=== PATIENT | female | born 1970 | race Caucasian/White ===

== ENCOUNTER 2016-10-13 09:23 | Emergency (ER) | payer OTHER ==
--- NOTE | 2016-10-13 10:07 | EDDOCDS ---
Physician Documentation [facility] Name: Anastasia Arriaga Age: 46 yrs Sex: Female : 1970 Arrival Date: 10/13/2016 Time: 09:23 Bed TR7 Private MD: Disposition: 10/13/16 09:58 Discharged to Home/Self Care. Impression: Acute nasopharyngitis [common cold]. - Condition is Stable. - Discharge Instructions: Upper Respiratory Infection, Adult, Viral Infections, Cool Mist Vaporizers. - Medication Reconciliation, Local Pharmacy Hours form. - Follow up: Private Physician; When: 2 - 3 days; Reason: Further diagnostic work-up, Recheck today's complaints, Continuance of care. - Problem is new. - Symptoms are unchanged. Historical: - Allergies: Motrin (Hives); Percocet (Hives, Rash); - Home Meds: 1. none - PMHx: Asthma; - PSHx: Hysterectomy (2012); - Social history: Smoking status: Patient uses tobacco products, light tobacco smoker. No barriers to communication noted, The patient speaks fluent Greek. - Family history: Not pertinent. - : The pt / caregiver states he / she is not on anticoagulants. Home medication list is obtained from the patient. - Exposure Risk Screening:: None identified. 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 8 in. (172.72 cm); Pain 8/10; 09:31 Body Mass Index 29.35 (87.54 kg, 172.72 cm) jc4 MDM: 09:46 [facility] Payment Agreement was scanned into [employer] and attached to record. dm19 10:03 Financial registration complete. dm19 Signatures: Paula Moreland, RN Chapincito Hendricks PA PA btw Castle, Jennifer, RN RN jc4 Katarzyna Garzon dm19 The chart was reviewed and I authenticate all verbal orders and agree with the evaluation and treatment provided.Attachments: 09:46 [facility] Payment Agreement dm19 MTDD
--- NOTE | 2016-10-13 10:07 | EDDOCDS ---
Nurse's Notes [facility] Name: Anastasia Arriaga Age: 46 yrs Sex: Female : 1970 Arrival Date: 10/13/2016 Time: 09:23 Bed TR7 Private MD: Diagnosis: Acute nasopharyngitis [common cold] Presentation: 10/13 09:27 Presenting complaint: Patient states: "I woke up yesterday morning and my whole body jc4 aches. I woke up a few minutes ago and my whole body aches, my head hurts and I 've been coughing". States productive cough with green sputum production. States cold chills and feels hot at times. Suicide/Homicide risk assessment- the patient denies having any suicidal and/or homicidal ideations and does not present with any other emotional, behavioral or mental health complaints. 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 Transition of care: patient was not received from another setting of care. 09:27 Acuity: ARLETTE Level 4 jc4 09:27 Method Of Arrival: Walkin/Carried/Asstd jc4 09:34 Adult Sepsis Screening: The patient does not have new or worsening altered mentation. jc4 Patient's respiratory rate is less than 22. Systolic blood pressure is greater than 100. Patient has a qSOFA score of 0- Negative Sepsis Screen. Triage Assessment: 09:29 General: Appears in no apparent distress. Pain: Pain currently is 8 out of 10 on a pain jc4 scale. Pt Declines HIV testing. 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 none - PMHx: Asthma; - PSHx: Hysterectomy (2012); - Social history: Smoking status: Patient uses tobacco products, light tobacco smoker. No barriers to communication noted, The patient speaks fluent Djiboutian. - Family history: Not pertinent. - : The pt / caregiver states he / she is not on anticoagulants. Home medication list is obtained from the patient. - Exposure Risk Screening:: None identified. Screenin:04 Screening information is obtained from the patient. Primary language is Djiboutian. Fall dls risk: No risks identified. Assistance ADL's: requires no assistance with activities of daily living. Abuse/DV Screen: The patient / caregiver reports he/she is: not in a situation that causes fear, pain or injury. Nutritional screening: No deficits noted. Advance Directives: Currently, there is no health care proxy. There is no active DNR order. There is no living will. There is no Power of [place]. Advance directive information has not previously been placed in an [facility] medical record. home support is adequate. Assessment: 10:04 General: Appears uncomfortable, Behavior is cooperative. Awake, alert, oriented. Skin dls warm and dry. Moves all extremities. Bilateral breath sounds clear. Respirations unlabored. Abdomen soft, non-tender. No apparent distress. The patient / caregiver is instructed regarding the plan of care and ED course. Vital Signs: 09:31 BP 132 / 74; Pulse 82; Resp 20; Temp 96.5(O); Pulse Ox 97% ; Weight 87.54 kg (M); jc4 Height 5 ft. 8 in. (172.72 cm); Pain 8/10; 09:31 Body Mass Index 29.35 (87.54 kg, 172.72 cm) [facility] Vitals: 09:29 Log In Time: October 13, 2016 at 09:22. 4 ED Course: 09:26 Patient visited by Helder Flores Reg. lg 09:26 Patient moved to Waiting lg 09:28 Triage Initiated jc4 09:30 Patient moved to Triage 1 jc4 09:34 Chapincito Cassidy PA is PHCP. btw 09:34 Fatoumata Harvey MD is Attending Physician. btw 09:46 [facility] Payment Agreement was scanned into [employer] and attached to record. dm19 09:48 Patient visited by Chapincito Cassidy PA. btw 10:03 Patient moved to TR7 dls 10:04 Patient has correct armband on for positive identification. Bed in low position. Call dls light in reach. 10:06 No IV's were initiated during this patient's visit. No procedures done that require dls assistance. Order Results: There are currently no results for this order. Outcome: 09:58 Discharge ordered by Provider. btw 10:04 The following High Risk Discharge criteria are identified: None. Discharged to home dls ambulatory. Condition: stable. Discharge instructions given to patient, Instructed on discharge instructions, follow up and referral plans. Demonstrated understanding of instructions, Pt was receptive of discharge instructions/ teaching. No special radiology studies were completed. 10:06 Discharge Assessment: Patient awake, alert and oriented x 3. No cognitive and/or dls functional deficits noted. Patient verbalized understanding of disposition instructions. patient administered narcotics - no. Property sent home with patient. 10:06 Patient left the ED. dls Signatures: Paula Moreland RN RN Helder Carmona, Cash Reg Chapincito Fregoso PA PA btw Castle, Jennifer, RN RN jc4 Katarzyna Garzon dm19 MTDD
--- NOTE | 2016-10-16 10:45 | EDDOCDS ---
Physician Documentation [facility] Name: Anastasia Arriaga Age: 46 yrs Sex: Female : 1970 Arrival Date: 10/13/2016 Time: 09:23 Bed TR7 Private MD: Disposition: 10/13/16 09:58 Discharged to Home/Self Care. Impression: Acute nasopharyngitis [common cold]. - Condition is Stable. - Discharge Instructions: Upper Respiratory Infection, Adult, Viral Infections, Cool Mist Vaporizers. - Medication Reconciliation, Local Pharmacy Hours form. - Follow up: Private Physician; When: 2 - 3 days; Reason: Further diagnostic work-up, Recheck today's complaints, Continuance of care. - Problem is new. - Symptoms are unchanged. Historical: - Allergies: Motrin (Hives); Percocet (Hives, Rash); - Home Meds: 1. none - PMHx: Asthma; - PSHx: Hysterectomy (2012); - Social history: Smoking status: Patient uses tobacco products, light tobacco smoker. No barriers to communication noted, The patient speaks fluent Greek. - Family history: Not pertinent. - : The pt / caregiver states he / she is not on anticoagulants. Home medication list is obtained from the patient. - Exposure Risk Screening:: None identified. 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 8 in. (172.72 cm); Pain 8/10; 09:31 Body Mass Index 29.35 (87.54 kg, 172.72 cm) jc4 MDM: 09:46 [facility] Payment Agreement was scanned into [employer] and attached to record. dm19 10:03 Financial registration complete. dm19 11:57 T-Sheet-- Draft Copy was scanned into [employer] and attached to record. [facility] Signatures: Paula Moreland RN RN dls Wolfenden, Brandon, PA PA btw Castle, Jennifer, RN RN jc4 Uzma Grimes Diane dm19 The chart was reviewed and I authenticate all verbal orders and agree with the evaluation and treatment provided.Attachments: 09:46 [facility] [place] Agreement dm19 11:57 T-Sheet-- Draft Copy [facility] Chart Complete MTDD
--- NOTE | 2016-10-16 10:45 | EDDOCDS ---
Physician Documentation [facility] Name: Anastasia Arriaga Age: 46 yrs Sex: Female : 1970 Arrival Date: 10/13/2016 Time: 09:23 Bed TR7 Private MD: Disposition: 10/13/16 09:58 Discharged to Home/Self Care. Impression: Acute nasopharyngitis [common cold]. - Condition is Stable. - Discharge Instructions: Upper Respiratory Infection, Adult, Viral Infections, Cool Mist Vaporizers. - Medication Reconciliation, Local Pharmacy Hours form. - Follow up: Private Physician; When: 2 - 3 days; Reason: Further diagnostic work-up, Recheck today's complaints, Continuance of care. - Problem is new. - Symptoms are unchanged. Historical: - Allergies: Motrin (Hives); Percocet (Hives, Rash); - Home Meds: 1. none - PMHx: Asthma; - PSHx: Hysterectomy (2012); - Social history: Smoking status: Patient uses tobacco products, light tobacco smoker. No barriers to communication noted, The patient speaks fluent French. - Family history: Not pertinent. - : The pt / caregiver states he / she is not on anticoagulants. Home medication list is obtained from the patient. - Exposure Risk Screening:: None identified. 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 8 in. (172.72 cm); Pain 8/10; 09:31 Body Mass Index 29.35 (87.54 kg, 172.72 cm) jc4 MDM: 09:46 [facility] Payment Agreement was scanned into [email or web address] and attached to record. dm19 10:03 Financial registration complete. dm19 11:57 T-Sheet-- Draft Copy was scanned into [employer] and attached to record. [facility] Signatures: Paula Moreland RN RN dls Wolfenden, Brandon, PA PA btw Castle, Jennifer, RN RN jc4 Uzma Grimes Diane dm19 The chart was reviewed and I authenticate all verbal orders and agree with the evaluation and treatment provided.Attachments: 09:46 [facility] Payment Agreement dm19 11:57 T-Sheet-- Draft Copy [facility] Chart Complete MTDD
--- NOTE | 2016-10-16 10:45 | EDDOCDS ---
Nurse's Notes [facility] Name: Anastasia Arriaga Age: 46 yrs Sex: Female : 1970 Arrival Date: 10/13/2016 Time: 09:23 Bed TR7 Private MD: Diagnosis: Acute nasopharyngitis [common cold] Presentation: 10/13 09:27 Presenting complaint: Patient states: "I woke up yesterday morning and my whole body jc4 aches. I woke up a few minutes ago and my whole body aches, my head hurts and I 've been coughing". States productive cough with green sputum production. States cold chills and feels hot at times. Suicide/Homicide risk assessment- the patient denies having any suicidal and/or homicidal ideations and does not present with any other emotional, behavioral or mental health complaints. Status: Patient is not a vp cardiovascular service line or dependent. Transition of care: patient was not received from another setting of care. 09:27 Acuity: ARLETTE Level 4 jc4 09:27 Method Of Arrival: Walkin/Carried/Asstd jc4 09:34 Adult Sepsis Screening: The patient does not have new or worsening altered mentation. jc4 Patient's respiratory rate is less than 22. Systolic blood pressure is greater than 100. Patient has a qSOFA score of 0- Negative Sepsis Screen. Triage Assessment: 09:29 General: Appears in no apparent distress. Pain: Pain currently is 8 out of 10 on a pain jc4 scale. Pt Declines HIV testing. 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 none - PMHx: Asthma; - PSHx: Hysterectomy (2012); - Social history: Smoking status: Patient uses tobacco products, light tobacco smoker. No barriers to communication noted, The patient speaks fluent [place] Lankan. - Family history: Not pertinent. - : The pt / caregiver states he / she is not on anticoagulants. Home medication list is obtained from the patient. - Exposure Risk Screening:: None identified. Screenin:04 Screening information is obtained from the patient. Primary language is Sri Lankan. Fall dls risk: No risks identified. Assistance ADL's: requires no assistance with activities of daily living. Abuse/DV Screen: The patient / caregiver reports he/she is: not in a situation that causes fear, pain or injury. Nutritional screening: No deficits noted. Advance Directives: Currently, there is no health care proxy. There is no active DNR order. There is no living will. There is no Power of [place]. Advance directive information has not previously been placed in an [facility] medical record. home support is adequate. Assessment: 10:04 General: Appears uncomfortable, Behavior is cooperative. Awake, alert, oriented. Skin dls warm and dry. Moves all extremities. Bilateral breath sounds clear. Respirations unlabored. Abdomen soft, non-tender. No apparent distress. The patient / caregiver is instructed regarding the plan of care and ED course. Vital Signs: 09:31 BP 132 / 74; Pulse 82; Resp 20; Temp 96.5(O); Pulse Ox 97% ; Weight 87.54 kg (M); jc4 Height 5 ft. 8 in. (172.72 cm); Pain 8/10; 09:31 Body Mass Index 29.35 (87.54 kg, 172.72 cm) [facility] Vitals: 09:29 Log In Time: October 13, 2016 at 09:22. [facility] ED Course: 09:26 Patient visited by Helder Flores Reg. lg 09:26 Patient moved to Waiting lg 09:28 Triage Initiated 4 09:30 Patient moved to Triage 1 jc4 09:34 Chapincito Cassidy PA is PHCP. btw 09:34 Fatoumata Harvey MD is Attending Physician. btw 09:46 [facility] Payment Agreement was scanned into [employer] and attached to record. dm19 09:48 Patient visited by Chapincito Cassidy PA. btw 10:03 Patient moved to TR7 dls 10:04 Patient has correct armband on for positive identification. Bed in low position. Call dls light in reach. 10:06 No IV's were initiated during this patient's visit. No procedures done that require dls assistance. 11:57 T-Sheet-- Draft Copy was scanned into [employer] and attached to record. [facility] Order Results: There are currently no results for this order. Outcome: 09:58 Discharge ordered by Provider. btw 10:04 The following High Risk Discharge criteria are identified: None. Discharged to home dls ambulatory. Condition: stable. Discharge instructions given to patient, Instructed on discharge instructions, follow up and referral plans. Demonstrated understanding of instructions, Pt was receptive of discharge instructions/ teaching. No special radiology studies were completed. 10:06 Discharge Assessment: Patient awake, alert and oriented x 3. No cognitive and/or dls functional deficits noted. Patient verbalized understanding of disposition instructions. patient administered narcotics - no. Property sent home with patient. 10:06 Patient left the ED. dls Signatures: Paula Moreland, RN RN Helder Carmona, Reg Reg lg Chapincito Cassidy PA PA btw Castle, Jennifer, RN RN jai Grimes, Katarzyna Ma dm19 Chart Complete [facility]
== END 2016-10-13 10:06 | disposition home or self-care (01) ==
LOC: M ED 09:23
DX: J06.9 Acute upper respiratory infection, unspecified (principal); B34.9 Viral infection, unspecified; J45.909 Unspecified asthma, uncomplicated; Z88.5 Allergy status to narcotic agent; Z88.6 Allergy status to analgesic agent; F17.210 Nicotine dependence, cigarettes, uncomplicated

== ENCOUNTER 2016-10-27 20:09 | Emergency (ER) | payer OTHER | END 2016-10-27 22:08 | disposition left against medical advice (07) | LOC: M ED 20:09 | DX: K02.9 Dental caries, unspecified (principal); Z53.20 Procedure and treatment not carried out because of patient's decision for unspecified reasons ==

== ENCOUNTER 2016-10-27 22:43 | Emergency (ER) | payer OTHER ==
[2016-10-28] MEDS ORDERED: LIDOCAINE VISCOUS 2% SOLN 15ML UDC As Ordered ONE (00:50)
[2016-10-28] MEDS ORDERED: PENICILLIN V POTASSIUM 500 MG TAB PO ONE (01:15)
--- NOTE | 2016-10-28 01:28 | EDDOCDS ---
Nurse's Notes [facility] Name: Anastasia Arriaga Age: 46 yrs Sex: Female : 1970 Arrival Date: 10/27/2016 Time: 22:43 Bed I1 / M1 Private MD: NO PRIMARY PHYSICIAN, . Diagnosis: Dental caries, unspecified-WITH PAIN OVER #15 TOOTH Presentation: 10/27 22:54 Presenting complaint: Patient states: LWBS earlier. Reports having been in the bathroom kmg1 and then out smoking. Still wishes to have her teeth looked at. Adult Sepsis Screening: The patient does not have new or worsening altered mentation. Patient's respiratory rate is less than 22. Systolic blood pressure is greater than 100. Patient has a qSOFA score of 0- Negative Sepsis Screen. Suicide/Homicide risk assessment- the patient denies having any suicidal and/or homicidal ideations and does not present with any other emotional, behavioral or mental health complaints. 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 Transition of care: patient was not received from another setting of care. 22:54 Acuity: ARLETTE Level 5 km 22:54 Method Of Arrival: Walkin/Carried/Asstd km Triage Assessment: 22:55 General: Appears in no apparent distress, comfortable, Behavior is appropriate for age, kmg1 cooperative, pleasant. Pain: Location: mouth Pain currently is 8 out of 10 on a pain scale. HIV screening NA for this visit Offered previously. EENT: Reports pain in mouth. 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 Tylenol 500 mg Oral 2 tabs as needed - PMHx: Asthma; - PSHx: Hysterectomy (2012); - Social history: Smoking status: Patient uses tobacco products, heavy tobacco smoker. No barriers to communication noted, The patient speaks fluent Japanese, Speaks appropriately for age. - Family history: Not pertinent. - : The pt / caregiver states he / she is not on anticoagulants. Home medication list is obtained from the patient. - Exposure Risk Screening:: None identified. Screenin/22 01:00 Screening information is obtained from the patient. Fall risk: No risks identified. ld5 Assistance ADL's: requires no assistance with activities of daily living. Abuse/DV Screen: The patient / caregiver reports he/she is: not in a situation that causes fear, pain or injury. Nutritional screening: No deficits noted. Advance Directives: There is no active DNR order. home support is adequate. Assessment: 01:00 General: Appears in no apparent distress, Behavior is cooperative. Pain: Location: ld5 mouth Pain currently is 9 out of 10 on a pain scale. Neurological: Level of Consciousness is awake, alert. EENT: Reports pain in mouth. Respiratory: Airway is patent Respiratory effort is even, unlabored. 01:25 Reassessment: Patient appears in no apparent distress at this time. first dose rw1 antibiotic given and lidocaine given to apply on affected tooth. Vital Signs: 10/27 22:45 BP 113 / 59; Pulse 80; Resp 18 S; Temp 99.6(O); Pulse Ox 100% on R/A; Weight 81.65 kg gr2 (R); Height 5 ft. 8 in. (172.72 cm) (R); Pain 8/10; 10/28 01:25 BP 130 / 65; Pulse 69; Resp 16; Temp 97.7(TE); Pulse Ox 96% on R/A; Pain 8/10; rw1 10/27 22:45 Body Mass Index 27.37 (81.65 kg, 172.72 cm) gr2 Vitals: 10/27 22:45 Log In Time: October 27, 2016 at 22:45. gr2 ED Course: 22:44 Patient visited by Susan Tan. gr2 22:44 Patient moved to Waiting gr2 22:45 NO PRIMARY PHYSICIAN, . is Private Physician. gr2 22:46 Patient visited by Susan Tan. gr2 22:46 Patient moved to Pre RCE gr2 22:55 Triage Initiated kmg1 23:57 Patient moved to MTA Wait cz 10/28 00:05 Patient visited by Miguelangel Darnell PCA. kb5 00:05 Patient moved to I1 / M1 kb5 00:21 Katarzyna Garcia PA-C is PHCP. dt4 00:21 Gianni Bauer DO is Attending Physician. dt4 00:21 Patient visited by Katarzyna Garcia PA-C. dt4 00:36 Your, Dentist is Referral Physician. dt4 01:00 The patient / caregiver is instructed regarding the plan of care and ED course. Patient ld5 has correct armband on for positive identification. 01:00 No IV's were initiated during this patient's visit. No procedures done that require ld5 assistance. 01:18 Patient visited by Shirin Sutherland RN. ld5 Administered Medications: 01:24 Drug: Lidocaine Viscous 15 ml [Lidocaine Viscous 2 % mucosal solution (15 mL)] Route: rw1 Mucous Membrane; Site: affected area; 01:24 Follow up: Response: Med's dispensed home rw1 01:24 Drug: Penicillin VK 500 mg [penicillin V potassium 250 mg tablet (2 tabs)] {Note: 1 tab rw1 500mg.} Route: PO; 01:24 Follow up: Response: Pt left department before re-evaluation is appropriate rw1 Order Results: There are currently no results for this order. Outcome: 00:38 Discharge ordered by Provider. dt4 01:25 Discharge Assessment: Patient awake, alert and oriented x 3. No cognitive and/or rw1 functional deficits noted. Patient verbalized understanding of disposition instructions. patient administered narcotics - no. The following High Risk Discharge criteria are identified: None. Discharged to home ambulatory. Condition: stable. Discharge instructions given to patient, Instructed on discharge instructions, follow up and referral plans. medication usage, Demonstrated understanding of instructions, medications, Pt was receptive of discharge instructions/ teaching. Prescriptions given X 1. No special radiology studies were completed. Property sent home with patient. 01:27 Patient left the ED. rw1 Signatures: Isabel Bunch RN RN km John Merida RN RN cz Workman, Robert, LPN LPN rw1 Miguelangel Darnell, DOUGH SCALER AND MIXER DOUGH SCALER AND MIXER kb5 Shirin Sutherland,LETICIA RN ld5 Susan Tan 2 Katarzyna Garcia PA-C PA-C dt4 MTDD
--- NOTE | 2016-10-28 01:28 | EDDOCDS ---
Physician Documentation [facility] Name: Anastasia Arriaga Age: 46 yrs Sex: Female : 1970 Arrival Date: 10/27/2016 Time: 22:43 Bed I1 / M1 Private MD: NO PRIMARY PHYSICIAN, . Disposition: 10/28/16 00:38 Discharged to Home/Self Care. Impression: Dental caries, unspecified - WITH PAIN OVER #15 TOOTH. - Condition is Stable. - Discharge Instructions: Dental Pain. - Prescriptions for Amoxicillin 875 mg Oral Tablet - take 1 tablet by ORAL route every 12 hours for 10 days; 20 tablet. - Medication Reconciliation, Local Pharmacy Hours form. - Follow up: Emergency Department; When: As needed; Reason: Worsening of conditions. Follow up: Your, Dentist; When: Call to arrange an appointment; Reason: Wound/Symptom Recheck, Recheck today's complaints, Continuance of care. - Problem is new. - Symptoms are unchanged. Historical: - Allergies: Motrin (Hives); Percocet (Hives, Rash); - Home Meds: 1. Tylenol 500 mg Oral 2 tabs as needed - PMHx: Asthma; - PSHx: Hysterectomy (2012); - Social history: Smoking status: Patient uses tobacco products, heavy tobacco smoker. No barriers to communication noted, The patient speaks fluent Persian, Speaks appropriately for age. - Family history: Not pertinent. - : The pt / caregiver states he / she is not on anticoagulants. Home medication list is obtained from the patient. - Exposure Risk Screening:: None identified. 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 8 in. (172.72 cm) (R); Pain 8/10; 10/28 01:25 BP 130 / 65; Pulse 69; Resp 16; Temp 97.7(TE); Pulse Ox 96% on R/A; Pain 8/10; rw1 10/27 22:45 Body Mass Index 27.37 (81.65 kg, 172.72 cm) gr2 MDM: 00:39 Lidocaine Viscous Liquid 2 % 15 ml Mucous Membrane in affected area once; GIVE TO PT TO dt4 TAKE HOME, THANK YOU. ordered. 00:39 Penicillin VK 500 mg PO once ordered. dt4 00:59 Financial registration complete. [facility] Administered Medications: 01:24 Drug: Lidocaine Viscous 15 ml [Lidocaine Viscous 2 % mucosal solution (15 mL)] Route: rw1 Mucous Membrane; Site: affected area; 01:24 Follow up: Response: Med's dispensed home rw1 01:24 Drug: Penicillin VK 500 mg [penicillin V potassium 250 mg tablet (2 tabs)] {Note: 1 tab rw1 500mg.} Route: PO; 01:24 Follow up: Response: Pt left department before re-evaluation is appropriate rw1 Signatures: Isabel Bunch, RN RN kmg1 Taj Phillips LPN SURVEYING [employer]AKE RUNNER rw1 Shirin Sutherland RN RN ld5 Katarzyna Garcia, PARichie PARichie dt4 Alice Singh [facility]
--- NOTE | 2016-10-30 02:28 | EDDOCDS ---
Physician Documentation [facility] Name: Anastasia Arriaga Age: 46 yrs Sex: Female : 1970 Arrival Date: 10/27/2016 Time: 22:43 Bed I1 / M1 Private MD: NO PRIMARY PHYSICIAN, . Disposition: 10/28/16 00:38 Discharged to Home/Self Care. Impression: Dental caries, unspecified - WITH PAIN OVER #15 TOOTH. - Condition is Stable. - Discharge Instructions: Dental Pain. - Prescriptions for Amoxicillin 875 mg Oral Tablet - take 1 tablet by ORAL route every 12 hours for 10 days; 20 tablet. - Medication Reconciliation, Local Pharmacy Hours form. - Follow up: Emergency Department; When: As needed; Reason: Worsening of conditions. Follow up: Your, Dentist; When: Call to arrange an appointment; Reason: Wound/Symptom Recheck, Recheck today's complaints, Continuance of care. - Problem is new. - Symptoms are unchanged. Historical: - Allergies: Motrin (Hives); Percocet (Hives, Rash); - Home Meds: 1. Tylenol 500 mg Oral 2 tabs as needed - PMHx: Asthma; - PSHx: Hysterectomy (2012); - Social history: Smoking status: Patient uses tobacco products, heavy tobacco smoker. No barriers to communication noted, The patient speaks fluent Serbian, Speaks appropriately for age. - Family history: Not pertinent. - : The pt / caregiver states he / she is not on anticoagulants. Home medication list is obtained from the patient. - Exposure Risk Screening:: None identified. 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 8 in. (172.72 cm) (R); Pain 8/10; 10/28 01:25 BP 130 / 65; Pulse 69; Resp 16; Temp 97.7(TE); Pulse Ox 96% on R/A; Pain 8/10; rw1 10/27 22:45 Body Mass Index 27.37 (81.65 kg, 172.72 cm) gr2 MDM: 00:39 Lidocaine Viscous Liquid 2 % 15 ml Mucous Membrane in affected area once; GIVE TO PT TO dt4 TAKE HOME, THANK YOU. ordered. 00:39 Penicillin VK 500 mg PO once ordered. dt4 00:59 Financial registration complete. [facility] 01:40 [facility] Payment Agreement was scanned into [employer] and attached to record. [facility] 13:56 T-Sheet-- Draft Copy was scanned into [employer]de and attached to record. kf3 Administered Medications: 01:24 Drug: Lidocaine Viscous 15 ml [Lidocaine Viscous 2 % mucosal solution (15 mL)] Route: rw1 Mucous Membrane; Site: affected area; 01:24 Follow up: Response: Med's dispensed home rw1 01:24 Drug: Penicillin VK 500 mg [penicillin V potassium 250 mg tablet (2 tabs)] {Note: 1 tab rw1 500mg.} Route: PO; 01:24 Follow up: Response: Pt left department before re-evaluation is appropriate rw1 Signatures: Isabel Bunch, RN RN kmg1 Taj Phillips LPN LPN rw1 Freddie Mijares, Reg Reg kf3 Shirin Sutherland,RN RN ld5 Katarzyna Garcia, PA-C PA-Babs dt4 Alice Singh [facility] The chart was reviewed and I authenticate all verbal orders and agree with the evaluation and treatment provided.Attachments: 01:40 [facility] Payment Agreement [facility] 13:56 T-Sheet-- Draft Copy kf3 Chart Complete MTDD
--- NOTE | 2016-10-30 02:28 | EDDOCDS ---
Nurse's Notes [facility] Name: Anastasia Arriaga Age: 46 yrs Sex: Female : 1970 Arrival Date: 10/27/2016 Time: 22:43 Bed I1 / M1 Private MD: NO PRIMARY PHYSICIAN, . Diagnosis: Dental caries, unspecified-WITH PAIN OVER #15 TOOTH Presentation: 10/27 22:54 Presenting complaint: Patient states: LWBS earlier. Reports having been in the bathroom kmg1 and then out smoking. Still wishes to have her teeth looked at. Adult Sepsis Screening: The patient does not have new or worsening altered mentation. Patient's respiratory rate is less than 22. Systolic blood pressure is greater than 100. Patient has a qSOFA score of 0- Negative Sepsis Screen. Suicide/Homicide risk assessment- the patient denies having any suicidal and/or homicidal ideations and does not present with any other emotional, behavioral or mental health complaints. 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 Transition of care: patient was not received from another setting of care. 22:54 Acuity: ARLETTE Level 5 km 22:54 Method Of Arrival: Walkin/Carried/Asstd km Triage Assessment: 22:55 General: Appears in no apparent distress, comfortable, Behavior is appropriate for age, kmg1 cooperative, pleasant. Pain: Location: mouth Pain currently is 8 out of 10 on a pain scale. HIV screening NA for this visit Offered previously. EENT: Reports pain in mouth. 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 Tylenol 500 mg Oral 2 tabs as needed - PMHx: Asthma; - PSHx: Hysterectomy (2012); - Social history: Smoking status: Patient uses tobacco products, heavy tobacco smoker. No barriers to communication noted, The patient speaks fluent Kazakh, Speaks appropriately for age. - Family history: Not pertinent. - : The pt / caregiver states he / she is not on anticoagulants. Home medication list is obtained from the patient. - Exposure Risk Screening:: None identified. Screenin/22 01:00 Screening information is obtained from the patient. Fall risk: No risks identified. ld5 Assistance ADL's: requires no assistance with activities of daily living. Abuse/DV Screen: The patient / caregiver reports he/she is: not in a situation that causes fear, pain or injury. Nutritional screening: No deficits noted. Advance Directives: There is no active DNR order. home support is adequate. Assessment: 01:00 General: Appears in no apparent distress, Behavior is cooperative. Pain: Location: ld5 mouth Pain currently is 9 out of 10 on a pain scale. Neurological: Level of Consciousness is awake, alert. EENT: Reports pain in mouth. Respiratory: Airway is patent Respiratory effort is even, unlabored. 01:25 Reassessment: Patient appears in no apparent distress at this time. first dose rw1 antibiotic given and lidocaine given to apply on affected tooth. Vital Signs: 10/27 22:45 BP 113 / 59; Pulse 80; Resp 18 S; Temp 99.6(O); Pulse Ox 100% on R/A; Weight 81.65 kg gr2 (R); Height 5 ft. 8 in. (172.72 cm) (R); Pain 8/10; 10/28 01:25 BP 130 / 65; Pulse 69; Resp 16; Temp 97.7(TE); Pulse Ox 96% on R/A; Pain 8/10; rw1 10/27 22:45 Body Mass Index 27.37 (81.65 kg, 172.72 cm) gr2 Vitals: 10/27 22:45 Log In Time: October 27, 2016 at 22:45. gr2 ED Course: 22:44 Patient visited by Susan Tan. gr2 22:44 Patient moved to Waiting gr2 22:45 NO PRIMARY PHYSICIAN, . is Private Physician. gr2 22:46 Patient visited by Susan Tan. gr2 22:46 Patient moved to Pre RCE gr2 22:55 Triage Initiated kmg1 23:57 Patient moved to MTA Wait cz 10/28 00:05 Patient visited by Miguelangel Darnell PCA. kb5 00:05 Patient moved to I1 / M1 kb5 00:21 Katarzyna Garcia PA-C is PHCP. dt4 00:21 Gianni Bauer DO is Attending Physician. dt4 00:21 Patient visited by Katarzyna Garcia PA-C. dt4 00:36 Your, Dentist is Referral Physician. dt4 01:00 The patient / caregiver is instructed regarding the plan of care and ED course. Patient ld5 has correct armband on for positive identification. 01:00 No IV's were initiated during this patient's visit. No procedures done that require ld5 assistance. 01:18 Patient visited by Shirin Sutherland RN. ld5 01:40 [facility] Payment Agreement was scanned into iKa[employer] and attached to record. [facility] 13:56 T-Sheet-- Draft Copy was scanned into iKa[employer] and attached to record. kf3 Administered Medications: 01:24 Drug: Lidocaine Viscous 15 ml [Lidocaine Viscous 2 % mucosal solution (15 mL)] Route: rw1 Mucous Membrane; Site: affected area; 01:24 Follow up: Response: Med's dispensed home rw1 01:24 Drug: Penicillin VK 500 mg [penicillin V potassium 250 mg tablet (2 tabs)] {Note: 1 tab rw1 500mg.} Route: PO; 01:24 Follow up: Response: Pt left department before re-evaluation is appropriate rw1 Order Results: There are currently no results for this order. Outcome: 00:38 Discharge ordered by Provider. dt4 01:25 Discharge Assessment: Patient awake, alert and oriented x 3. No cognitive and/or rw1 functional deficits noted. Patient verbalized understanding of disposition instructions. patient administered narcotics - no. The following High Risk Discharge criteria are identified: None. Discharged to home ambulatory. Condition: stable. Discharge instructions given to patient, Instructed on discharge instructions, follow up and referral plans. medication usage, Demonstrated understanding of instructions, medications, Pt was receptive of discharge instructions/ teaching. Prescriptions given X 1. No special radiology studies were completed. Property sent home with patient. 01:27 Patient left the ED. rw1 Signatures: Isabel Bunch, RN RN kmg1 John Merida, LETICIA RN cz Taj Phillips LPN LPN rw1 Miguelangel Darnell, DIRECTOR OF HEALTH EDUCATION DIRECTOR OF HEALTH EDUCATION kb5 Freddie Mjiares, Reg Reg kf3 Shirin Sutherland,RN RN ld5 Susan Tan gr2 Katarzyna Garcia, PA-C PA-C dt4 Alice Singh [facility] Chart Complete MTDD
--- NOTE | 2016-10-30 02:28 | EDDOCDS ---
Physician Documentation [facility] Name: Anastasia Arriaga Age: 46 yrs Sex: Female : 1970 Arrival Date: 10/27/2016 Time: 22:43 Bed I1 / M1 Private MD: NO PRIMARY PHYSICIAN, . Disposition: 10/28/16 00:38 Discharged to Home/Self Care. Impression: Dental caries, unspecified - WITH PAIN OVER #15 TOOTH. - Condition is Stable. - Discharge Instructions: Dental Pain. - Prescriptions for Amoxicillin 875 mg Oral Tablet - take 1 tablet by ORAL route every 12 hours for 10 days; 20 tablet. - Medication Reconciliation, Local Pharmacy Hours form. - Follow up: Emergency Department; When: As needed; Reason: Worsening of conditions. Follow up: Your, Dentist; When: Call to arrange an appointment; Reason: Wound/Symptom Recheck, Recheck today's complaints, Continuance of care. - Problem is new. - Symptoms are unchanged. Historical: - Allergies: Motrin (Hives); Percocet (Hives, Rash); - Home Meds: 1. Tylenol 500 mg Oral 2 tabs as needed - PMHx: Asthma; - PSHx: Hysterectomy (2012); - Social history: Smoking status: Patient uses tobacco products, heavy tobacco smoker. No barriers to communication noted, The patient speaks fluent Italian, Speaks appropriately for age. - Family history: Not pertinent. - : The pt / caregiver states he / she is not on anticoagulants. Home medication list is obtained from the patient. - Exposure Risk Screening:: None identified. 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 8 in. (172.72 cm) (R); Pain 8/10; 10/28 01:25 BP 130 / 65; Pulse 69; Resp 16; Temp 97.7(TE); Pulse Ox 96% on R/A; Pain 8/10; rw1 10/27 22:45 Body Mass Index 27.37 (81.65 kg, 172.72 cm) gr2 MDM: 00:39 Lidocaine Viscous Liquid 2 % 15 ml Mucous Membrane in affected area once; GIVE TO PT TO dt4 TAKE HOME, THANK YOU. ordered. 00:39 Penicillin VK 500 mg PO once ordered. dt4 00:59 Financial registration complete. [facility] 01:40 [facility] Payment Agreement was scanned into [employer] and attached to record. [facility] 13:56 T-Sheet-- Draft Copy was scanned into [employer] and attached to record. kf3 Administered Medications: 01:24 Drug: Lidocaine Viscous 15 ml [Lidocaine Viscous 2 % mucosal solution (15 mL)] Route: rw1 Mucous Membrane; Site: affected area; 01:24 Follow up: Response: Med's dispensed home rw1 01:24 Drug: Penicillin VK 500 mg [penicillin V potassium 250 mg tablet (2 tabs)] {Note: 1 tab rw1 500mg.} Route: PO; 01:24 Follow up: Response: Pt left department before re-evaluation is appropriate rw1 Signatures: Isabel Bunch, RN RN kmg1 Taj Phillips LPN LPN rw1 Freddie Mijares, Reg Reg kf3 Shirin Sutherland,RN RN ld5 Katarzyna Garcia, PA-C PA-Babs dt4 Alice Singh [facility] The chart was reviewed and I authenticate all verbal orders and agree with the evaluation and treatment provided.Attachments: 01:40 [facility] Payment Agreement [facility] 13:56 T-Sheet-- Draft Copy kf3 Chart Complete MTDD
== END 2016-10-28 01:27 | disposition home or self-care (01) ==
LOC: M ED 22:43
DX: K08.89 Other specified disorders of teeth and supporting structures (principal); K02.9 Dental caries, unspecified; J45.909 Unspecified asthma, uncomplicated; F17.200 Nicotine dependence, unspecified, uncomplicated

== ENCOUNTER 2016-11-23 16:50 | Emergency (ER) | payer OTHER ==
--- NOTE | 2016-11-23 17:24 | EDDOCDS ---
Nurse's Notes [facility] Name: Anastasia Arriaga Age: 46 yrs Sex: Female : 1970 Arrival Date: 11/23/2016 Time: 16:50 Bed TR7 Private MD: NO PRIMARY PHYSICIAN, . Diagnosis: Dental caries Presentation: 11/23 16:55 Presenting complaint: Patient states: "I got a toothache." Started about a week ago. ld5 Took 5 mg of oxycodone and pain was not touched. Forgot to eat with med so now stomach is upset. Unable to find dentist because pt states no one takes her insurance. Adult Sepsis Screening: The patient does not have new or worsening altered mentation. Patient's respiratory rate is less than 22. Systolic blood pressure is greater than 100. Patient has a qSOFA score of 0- Negative Sepsis Screen. Suicide/Homicide risk assessment- the patient denies having any suicidal and/or homicidal ideations and does not present with any other emotional, behavioral or mental health complaints. 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 Transition of care: patient was not received from another setting of care. 16:55 Acuity: ARLETTE Level 5 ld5 16:55 Method Of Arrival: Walkin/Carried/Asstd ld5 Triage Assessment: 16:57 General: Appears in no apparent distress. Pain: Location: upper left third molar Pain ld5 currently is 8 out of 10 on a pain scale. HIV screening NA for this visit Offered previously. Neurological: Level of Consciousness is awake, alert. EENT: Reports pain in mouth. Respiratory: Airway is patent Respiratory effort is even, unlabored. 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 none - PMHx: Asthma; - PSHx: Hysterectomy (2012); - Social history: Smoking status: Patient uses tobacco products, current every day smoker. No barriers to communication noted, The patient speaks fluent Guamanian, Speaks appropriately for age. - Family history: Not pertinent. - : The pt / caregiver states he / she is not on anticoagulants. Home medication list is obtained from the patient. - Exposure Risk Screening:: None identified. Screenin:10 Screening information is obtained from the patient. Fall risk: No risks identified. ttb Assistance ADL's: requires no assistance with activities of daily living. Abuse/DV Screen: The patient / caregiver reports he/she is: not in a situation that causes fear, pain or injury. Nutritional screening: No deficits noted. Advance Directives: Currently, there is no health care proxy. home support is adequate. Assessment: 17:10 General: Appears in no apparent distress, well nourished, Behavior is appropriate for ttb age, cooperative, pleasant. Neurological: Level of Consciousness is awake, alert. Respiratory: No deficits noted. Derm: Skin is normal. Vital Signs: 16:52 BP 145 / 69; Pulse 75; Resp 18 S; Temp 97.7(O); Pulse Ox 100% on R/A; Weight 81.65 kg gr2 (R); Height 5 ft. 8 in. (172.72 cm) (R); Pain 7/10; 16:52 Body Mass Index 27.37 (81.65 kg, 172.72 cm) gr2 Vitals: 16:52 Log In Time: November 23, 2016 at 16:52. gr2 ED Course: 16:51 Patient visited by Susan Tan. gr2 16:51 NO PRIMARY PHYSICIAN, . is Private Physician. gr2 16:51 Patient moved to Waiting gr2 16:54 Patient visited by Susan Tan. gr2 16:54 Patient moved to Pre RCE gr2 16:56 Triage Initiated ld5 16:58 Chapincito Cassidy PA is PHCP. btw 16:58 Tina Emanuel MD is Attending Physician. btw 16:58 Patient visited by Chapincito Cassidy PA. btw 16:58 Patient moved to Triage 1 ld5 17:10 Your, Dentist is Referral Physician. btw 17:10 The patient / caregiver is instructed regarding the plan of care and ED course. Patient ttb has correct armband on for positive identification. 17:10 No IV's were initiated during this patient's visit. No procedures done that require ttb assistance. 17:18 Patient moved to TR7 ttb Order Results: There are currently no results for this order. Outcome: 17:10 Discharge ordered by Provider. btw 17:10 Discharge Assessment: Patient awake, alert and oriented x 3. No cognitive and/or ttb functional deficits noted. Patient verbalized understanding of disposition instructions. Patient awake and alert. patient administered narcotics - no. The following High Risk Discharge criteria are identified: None. Discharged to home ambulatory. Condition: good Condition: stable Condition: improved. Discharge instructions given to patient, Instructed on discharge instructions, follow up and referral plans. medication usage, Demonstrated understanding of instructions, medications, Pt was receptive of discharge instructions/ teaching. Prescriptions given X 2. No special radiology studies were completed. Property sent home with patient. 17:22 Patient left the ED. ttb Signatures: Chapincito Cassidy PA PA btw Dickerson, Laura,RN RN ld5 Makeda Mar RN RN ttb Susan Tan gr2 MTDD
--- NOTE | 2016-11-23 17:24 | EDDOCDS ---
Physician Documentation [facility] Name: Anastasia Arriaga Age: 46 yrs Sex: Female : 1970 Arrival Date: 11/23/2016 Time: 16:50 Bed TR7 Private MD: NO PRIMARY PHYSICIAN, . Disposition: 11/23/16 17:10 Discharged to Home/Self Care. Impression: Dental caries. - Condition is Stable. - Discharge Instructions: Dental Pain. - Prescriptions for Amoxicillin 500 mg Oral Capsule - take 1 capsule by ORAL route every 8 hours for 10 days; 30 tablet. Tramadol 50 mg Oral Tablet - take 0.5 tablet by ORAL route 4 times per day MDD: 2 tabs; 10 tablet. - Medication Reconciliation, Local Pharmacy Hours form. - Follow up: Your, Dentist; When: Call to arrange an appointment; Reason: Further diagnostic work-up, Recheck today's complaints, Continuance of care, To establish care. - Problem is an acute exacerbation. - Symptoms are unchanged. Historical: - Allergies: Motrin (Hives); Percocet (Hives, Rash); - Home Meds: 1. none - PMHx: Asthma; - PSHx: Hysterectomy (2012); - Social history: Smoking status: Patient uses tobacco products, current every day smoker. No barriers to communication noted, The patient speaks fluent Kiswahili, Speaks appropriately for age. - Family history: Not pertinent. - : The pt / caregiver states he / she is not on anticoagulants. Home medication list is obtained from the patient. - Exposure Risk Screening:: None identified. 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 8 in. (172.72 cm) (R); Pain 7/10; 16:52 Body Mass Index 27.37 (81.65 kg, 172.72 cm) gr2 Signatures: Chapincito Cassidy PA PA btw Shirin Sutherland RN RN ld5 Makeda Mar RN RN ttb MTDD
--- NOTE | 2016-11-25 18:23 | EDDOCDS ---
Physician Documentation [facility] Name: Anastasia Arriaga Age: 46 yrs Sex: Female : 1970 Arrival Date: 11/23/2016 Time: 16:50 Bed TR7 Private MD: NO PRIMARY PHYSICIAN, . Disposition: 11/23/16 17:10 Discharged to Home/Self Care. Impression: Dental caries. - Condition is Stable. - Discharge Instructions: Dental Pain. - Prescriptions for Amoxicillin 500 mg Oral Capsule - take 1 capsule by ORAL route every 8 hours for 10 days; 30 tablet. Tramadol 50 mg Oral Tablet - take 0.5 tablet by ORAL route 4 times per day MDD: 2 tabs; 10 tablet. - Medication Reconciliation, Local Pharmacy Hours form. - Follow up: Your, Dentist; When: Call to arrange an appointment; Reason: Further diagnostic work-up, Recheck today's complaints, Continuance of care, To establish care. - Problem is an acute exacerbation. - Symptoms are unchanged. Historical: - Allergies: Motrin (Hives); Percocet (Hives, Rash); - Home Meds: 1. none - PMHx: Asthma; - PSHx: Hysterectomy (2012); - Social history: Smoking status: Patient uses tobacco products, current every day smoker. No barriers to communication noted, The patient speaks fluent Albanian, Speaks appropriately for age. - Family history: Not pertinent. - : The pt / caregiver states he / she is not on anticoagulants. Home medication list is obtained from the patient. - Exposure Risk Screening:: None identified. 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 8 in. (172.72 cm) (R); Pain 7/10; 16:52 Body Mass Index 27.37 (81.65 kg, 172.72 cm) gr2 MDM: 17:32 [facility] Payment Agreement was scanned into [employer] and attached to record. [facility] 17:32 Financial registration complete. [facility] 11/24 08:56 T-Sheet-- Draft Copy was scanned into [employer] and attached to record. gb Signatures: Angela Archer, Reg Reg gb Chapincito Cassidy PA PA btw Shirin SutherlandRN RN ld5 Makeda Mar RN RN caseb Mya Almanza The chart was reviewed and I authenticate all verbal orders and agree with the evaluation and treatment provided.Attachments: 11/23 17:32 [facility] Payment Agreement gjcristal 11/24 08:56 T-Sheet-- Draft Copy gb Chart Complete MTDD
--- NOTE | 2016-11-25 18:23 | EDDOCDS ---
Physician Documentation [facility] Name: Anastasia Arriaga Age: 46 yrs Sex: Female : 1970 Arrival Date: 11/23/2016 Time: 16:50 Bed TR7 Private MD: NO PRIMARY PHYSICIAN, . Disposition: 11/23/16 17:10 Discharged to Home/Self Care. Impression: Dental caries. - Condition is Stable. - Discharge Instructions: Dental Pain. - Prescriptions for Amoxicillin 500 mg Oral Capsule - take 1 capsule by ORAL route every 8 hours for 10 days; 30 tablet. Tramadol 50 mg Oral Tablet - take 0.5 tablet by ORAL route 4 times per day MDD: 2 tabs; 10 tablet. - Medication Reconciliation, Local Pharmacy Hours form. - Follow up: Your, Dentist; When: Call to arrange an appointment; Reason: Further diagnostic work-up, Recheck today's complaints, Continuance of care, To establish care. - Problem is an acute exacerbation. - Symptoms are unchanged. Historical: - Allergies: Motrin (Hives); Percocet (Hives, Rash); - Home Meds: 1. none - PMHx: Asthma; - PSHx: Hysterectomy (2012); - Social history: Smoking status: Patient uses tobacco products, current every day smoker. No barriers to communication noted, The patient speaks fluent Kyrgyz, Speaks appropriately for age. - Family history: Not pertinent. - : The pt / caregiver states he / she is not on anticoagulants. Home medication list is obtained from the patient. - Exposure Risk Screening:: None identified. 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 8 in. (172.72 cm) (R); Pain 7/10; 16:52 Body Mass Index 27.37 (81.65 kg, 172.72 cm) gr2 MDM: 17:32 [facility] Payment Agreement was scanned into [employer] and attached to record. [facility] 17:32 Financial registration complete. [facility] 11/24 08:56 T-Sheet-- Draft Copy was scanned into [employer] and attached to record. gb Signatures: Angela Archer, Reg Reg gb Chapincito Cassidy PA PA btw Shirin SutherlandRN RN ld5 Makeda Mar RN RN caseb Mya Almanza The chart was reviewed and I authenticate all verbal orders and agree with the evaluation and treatment provided.Attachments: 11/23 17:32 [facility] Payment Agreement gjcristal 11/24 08:56 T-Sheet-- Draft Copy gb Chart Complete MTDD
--- NOTE | 2016-11-25 18:23 | EDDOCDS ---
Nurse's Notes [facility] Name: Anastasia Arriaga Age: 46 yrs Sex: Female : 1970 Arrival Date: 11/23/2016 Time: 16:50 Bed TR7 Private MD: NO PRIMARY PHYSICIAN, . Diagnosis: Dental caries Presentation: 11/23 16:55 Presenting complaint: Patient states: "I got a toothache." Started about a week ago. ld5 Took 5 mg of oxycodone and pain was not touched. Forgot to eat with med so now stomach is upset. Unable to find dentist because pt states no one takes her insurance. Adult Sepsis Screening: The patient does not have new or worsening altered mentation. Patient's respiratory rate is less than 22. Systolic blood pressure is greater than 100. Patient has a qSOFA score of 0- Negative Sepsis Screen. Suicide/Homicide risk assessment- the patient denies having any suicidal and/or homicidal ideations and does not present with any other emotional, behavioral or mental health complaints. Status: Patient is not a career services representative or dependent. Transition of care: patient was not received from another setting of care. 16:55 Acuity: ARLETTE Level 5 ld5 16:55 Method Of Arrival: Walkin/Carried/Asstd ld5 Triage Assessment: 16:57 General: Appears in no apparent distress. Pain: Location: upper left third molar Pain ld5 currently is 8 out of 10 on a pain scale. HIV screening NA for this visit Offered previously. Neurological: Level of Consciousness is awake, alert. EENT: Reports pain in mouth. Respiratory: Airway is patent Respiratory effort is even, unlabored. 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 none - PMHx: Asthma; - PSHx: Hysterectomy (2012); - Social history: Smoking status: Patient uses tobacco products, current every day smoker. No barriers to communication noted, The patient speaks fluent Icelandic, Speaks appropriately for age. - Family history: Not pertinent. - : The pt / caregiver states he / she is not on anticoagulants. Home medication list is obtained from the patient. - Exposure Risk Screening:: None identified. Screenin:10 Screening information is obtained from the patient. Fall risk: No risks identified. ttb Assistance ADL's: requires no assistance with activities of daily living. Abuse/DV Screen: The patient / caregiver reports he/she is: not in a situation that causes fear, pain or injury. Nutritional screening: No deficits noted. Advance Directives: Currently, there is no health care proxy. home support is adequate. Assessment: 17:10 General: Appears in no apparent distress, well nourished, Behavior is appropriate for ttb age, cooperative, pleasant. Neurological: Level of Consciousness is awake, alert. Respiratory: No deficits noted. Derm: Skin is normal. Vital Signs: 16:52 BP 145 / 69; Pulse 75; Resp 18 S; Temp 97.7(O); Pulse Ox 100% on R/A; Weight 81.65 kg gr2 (R); Height 5 ft. 8 in. (172.72 cm) (R); Pain 7/10; 16:52 Body Mass Index 27.37 (81.65 kg, 172.72 cm) gr2 Vitals: 16:52 Log In Time: November 23, 2016 at 16:52. gr2 ED Course: 16:51 Patient visited by Susan Tan. gr2 16:51 NO PRIMARY PHYSICIAN, . is Private Physician. gr2 16:51 Patient moved to Waiting gr2 16:54 Patient visited by Susan Tan. gr2 16:54 Patient moved to Pre RCE gr2 16:56 Triage Initiated ld5 16:58 Chapincito Cassidy PA is PHCP. btw 16:58 Tina Emanuel MD is Attending Physician. btw 16:58 Patient visited by Chapincito Cassidy PA. btw 16:58 Patient moved to Triage 1 ld5 17:10 Your, Dentist is Referral Physician. btw 17:10 The patient / caregiver is instructed regarding the plan of care and ED course. Patient ttb has correct armband on for positive identification. 17:10 No IV's were initiated during this patient's visit. No procedures done that require ttb assistance. 17:18 Patient moved to TR7 ttb 17:32 [facility] Payment Agreement was scanned into [employer] and attached to record. gjb 11/24 08:56 T-Sheet-- Draft Copy was scanned into [employer] and attached to record. Order Results: There are currently no results for this order. Outcome: 11/23 17:10 Discharge ordered by Provider. btw 17:10 Discharge Assessment: Patient awake, alert and oriented x 3. No cognitive and/or ttb functional deficits noted. Patient verbalized understanding of disposition instructions. Patient awake and alert. patient administered narcotics - no. The following High Risk Discharge criteria are identified: None. Discharged to home ambulatory. Condition: good Condition: stable Condition: improved. Discharge instructions given to patient, Instructed on discharge instructions, follow up and referral plans. medication usage, Demonstrated understanding of instructions, medications, Pt was receptive of discharge instructions/ teaching. Prescriptions given X 2. No special radiology studies were completed. Property sent home with patient. 17:22 Patient left the ED. ttb Signatures: Angela Archer, Reg Reg Chapincito Ruth PA PA btw Shirin Sutherland,RN RN ld5 Makeda Mar RN RN ttb Susan Tan 2 Mya Almanza Chart Complete [facility]
== END 2016-11-23 17:22 | disposition home or self-care (01) ==
LOC: M ED 16:50
DX: K02.9 Dental caries, unspecified (principal); J45.909 Unspecified asthma, uncomplicated; Z72.0 Tobacco use; Z88.5 Allergy status to narcotic agent; Z88.6 Allergy status to analgesic agent

== ENCOUNTER 2016-12-12 10:59 | Emergency (ER) | payer OTHER ==
[~2016-12-12] VITALS: Ht 172.7 cm; Wt 77.1 kg
[2016-12-12] MEDS ORDERED: PRED20TA PO (13:11)
[2016-12-12] MEDS ORDERED: AUGM875T27 PO (13:12)
[2016-12-12] MEDS ORDERED: ZOFR4TAB3 PO (13:13)
[2016-12-12] MEDS ORDERED: ONDANSETRON 4 MG ORAL DISINTEGRATING TAB (S0181) PO ONE (13:15)
[2016-12-12] MEDS ORDERED: ACETAMINOPHEN 325 MG TAB PO ONE (13:15)
[2016-12-12 13:47] VITALS: BP 114/68
== END 2016-12-12 14:07 | disposition home or self-care (01) ==
LOC: M ED 12:25
DX: J03.90 Acute tonsillitis, unspecified (principal); J01.90 Acute sinusitis, unspecified; R11.2 Nausea with vomiting, unspecified; R19.7 Diarrhea, unspecified; Z88.8 Allergy status to other drugs, medicaments and biological substances; F17.200 Nicotine dependence, unspecified, uncomplicated

== ENCOUNTER → 2017-02-10 | Outpatient (REF) | payer OTHER ==
[~2017-02-10] MED LIST: AUGM875T27 PO; PRED20TA PO; ZOFR4TAB3 PO
== END ==
LOC: M LAB REF 12:41
PROVIDERS: ATTEND Physician Assistant Medical
DX: N39.0 Urinary tract infection, site not specified (principal)

== ENCOUNTER 2017-03-19 17:40 | Emergency (ER) | payer OTHER ==
[~2017-03-19] VITALS: Ht 172.7 cm; Wt 85.7 kg
[2017-03-19] MEDS ORDERED: MAGICMW MT (18:42)
[2017-03-19] MEDS ORDERED: ACETAMINOPHEN 325 MG TAB PO ONE (18:45)
[2017-03-19 18:52] VITALS: BP 119/66
== END 2017-03-19 18:54 | disposition home or self-care (01) ==
LOC: M ED 17:58
DX: H92.01 Otalgia, right ear (principal); J02.9 Acute pharyngitis, unspecified; F17.200 Nicotine dependence, unspecified, uncomplicated

== ENCOUNTER → 2017-03-21 | Outpatient (CLI) | payer OTHER ==
[~2017-03-21] MED LIST changes: +MAGICMW MT
[2017-03-21 15:32] LABS: BASO # 0.1 K/mm3 (0.0-0.2); BASO % 0.8 % (0.0-1.0); EOS # 0.1 K/mm3 (0.0-0.50); EOS % 1.3 % (0.0-3.0); LARGE UNSTAINED CELL # 0.2 K/mm3 (0.0-0.4); LARGE UNSTAINED CELL % 2.4 % (0.0-4.0); LYMPH # 2.7 K/mm3 (1.5-4.5); LYMPH % 39.3 % (24.0-44.0); MEAN CORPUSCULAR HEMOGLOBIN 30.8 pg (27.0-33.0); MEAN CORPUSCULAR HGB CONC 32.1 g/dl (32.0-36.5); MEAN CORPUSCULAR VOLUME 95.9 fl (80.0-96.0); MONO # 0.3 K/mm3 (0.0-0.8); MONO % 4.1 % (0.0-5.0); NEUTROPHILS # 3.6 K/mm3 (1.8-7.7); PLATELET COUNT, AUTOMATED 249 k/mm3 (150-450); RED CELL DISTRIBUTION WIDTH 13.5 % (11.5-14.5); WHITE BLOOD COUNT 6.9 K/mm3 (4.0-10.0)
[2017-03-21 16:00] LABS: BLOOD UREA NITROGEN 6 MG/DL (7-18); CREATININE FOR GFR 0.68 MG/DL (0.55-1.02); GLUCOSE, FASTING 86 MG/DL (70-105)
[2017-03-21 16:01] LABS: ALBUMIN 3.8 GM/DL (3.2-5.2); ALBUMIN/GLOBULIN RATIO 0.97 (1.00-1.93); ALKALINE PHOSPHATASE 94 U/L (45-117); ALT/SGPT 18 U/L (12-78); ANION GAP 6 MEQ/L (8-16); AST/SGOT 9 U/L (15-37); BILIRUBIN,TOTAL 0.2 MG/DL (0.2-1.0); CALCIUM LEVEL 9.1 MG/DL (8.5-10.1); CARBON DIOXIDE LEVEL 28 MEQ/L (21-32); CHLORIDE LEVEL 108 MEQ/L (98-107); CHOLESTEROL LEVEL 196 MG/DL (<200); GLOMERULAR FILTRATION RATE > 60.0 (>58); POTASSIUM SERUM 3.8 MEQ/L (3.5-5.1); SODIUM LEVEL 142 MEQ/L (136-145); TOTAL PROTEIN 7.7 GM/DL (6.4-8.2); TRIGLYCERIDES LEVEL 190 MG/DL (<150)
== END ==
LOC: M LAB 15:02
PROVIDERS: ATTEND Nurse Practitioner Family
DX: R63.0 Anorexia (principal); F41.8 Other specified anxiety disorders; Z13.220 Encounter for screening for lipoid disorders; N91.1 Secondary amenorrhea; R58 Hemorrhage, not elsewhere classified

== ENCOUNTER → 2017-04-01 | Outpatient (CLI) | payer OTHER ==
--- NOTE | 2017-04-01 11:01 | PFTRPT ---
Tech: Grey HUNTER RRT Age: 47 Sex: Female Race: Height: 68.00 Inches Weight: 176.00 Lbs BSA: 1.94 Diagnosis: J45.909 PULMONARY FUNCTION REPORT ORDERING PROVIDER: LEONARDO Ibarra DATE OF SERVICE: 04/01/17 SPIROMETRY: Excellent technical quality. The forced vital capacity is reduced. The FEV1 is in proportion. The obstructive index is, therefore, normal. FLOW VOLUME LOOP: The expiratory limb of the flow volume loop does suggest a nonspecific flow rate limitation. LUNG VOLUMES: The total lung capacity is normal. The residual volume suggests air trapping. DIFFUSION CAPACITY: The diffusion capacity is reduced, but does correct for alveolar volume. HEMOGLOBIN: No hemoglobin is available for correction. AIRWAY MECHANICS: Airways resistance and conductance are normal. IMPRESSION: Suspect a degree of underlying air trapping with a mild decline in the absolutely diffusion capacity. Please correlate clinically. MTDD
== END ==
LOC: M CARPUL 10:29
PROVIDERS: ATTEND Nurse Practitioner Family
DX: J45.909 Unspecified asthma, uncomplicated (principal); R94.2 Abnormal results of pulmonary function studies

== ENCOUNTER → 2017-04-18 | Outpatient (REF) | payer OTHER ==
[~2017-04-18] MED LIST changes: +ACETGRA; +ALBU17IN INH; -AUGM875T27 PO; +AUGM875T28 PO; +BREO1INH INH; +CYCL5TAB PO; +MYLA1SUS PO; +TRAZ50TA11; +TRAZ50TA11 PO; +TYLE325T5 PO; +VITA1CAP40 PO; +VITA2000 PO; +ZOLP5TAB PO
== END ==
LOC: M LAB REF 16:31
PROVIDERS: ATTEND Nurse Practitioner Family
DX: R10.2 Pelvic and perineal pain (principal)

== ENCOUNTER → 2017-04-24 | Outpatient (CLI) | payer OTHER ==
--- NOTE | 2017-04-24 14:53 | REP ---
Pelvic ultrasound including transabdominal and endovaginal ultrasound assessment: Comparison is a 09/25/2011. The bladder is adequately distended. The uterus is retroverted and normal size measuring 7.2 x 3.3 x 5.8 cm. The myometrium is heterogeneous. There is a focal fibroid in the body of the uterus, subserosal measuring 2.5 cm. Upon review, I suspect that this fibroid was also present on the previous study. It is unchanged in size. The endometrium is not thickened measuring 4.5 mm. The right ovary is not visualized. The left ovary is normal size measuring 2.1 x 1.0 x 1.3 cm. There is no dominant left ovarian mass or cyst. There is no free fluid in the cul-de-sac. Impression: Retroverted uterus. Uterine fibroid as described. The left ovary is unremarkable. The right ovary was not visualized. Signed by Juan J Avila MD 04/24/2017 02:45 P
== END ==
LOC: M RAD 13:41
PROVIDERS: ATTEND Nurse Practitioner Family
DX: R10.2 Pelvic and perineal pain (principal); D25.9 Leiomyoma of uterus, unspecified; N85.4 Malposition of uterus

== ENCOUNTER 2017-04-26 17:40 | Emergency (ER) | payer OTHER ==
[~2017-04-26] VITALS: Ht 172.7 cm; Wt 84.5 kg
[~2017-04-26 17:40] MED LIST changes: -ACETGRA; -ALBU17IN INH; -BREO1INH INH; -CYCL5TAB PO; -MYLA1SUS PO; -TRAZ50TA11; -TRAZ50TA11 PO; -TYLE325T5 PO; -VITA1CAP40 PO; -VITA2000 PO; -ZOLP5TAB PO
[2017-04-26] MEDS ORDERED: ONDANSETRON 4MG/2ML VIAL (J2405) IV ONE (18:30)
[2017-04-26] MEDS ORDERED: MORPHINE 2 MG/ML 1ML SYRINGE IV ONE (18:30)
[2017-04-26 18:39] LABS: BASO # 0.1 K/mm3 (0.0-0.2); BASO % 0.8 % (0.0-1.0); EOS # 0.1 K/mm3 (0.0-0.50); EOS % 1.3 % (0.0-3.0); LARGE UNSTAINED CELL # 0.1 K/mm3 (0.0-0.4); LARGE UNSTAINED CELL % 1.6 % (0.0-4.0); LYMPH # 2.7 K/mm3 (1.5-4.5); LYMPH % 33.2 % (24.0-44.0); MEAN CORPUSCULAR HEMOGLOBIN 31.2 pg (27.0-33.0); MEAN CORPUSCULAR HGB CONC 32.5 g/dl (32.0-36.5); MEAN CORPUSCULAR VOLUME 96.2 fl (80.0-96.0); MONO # 0.2 K/mm3 (0.0-0.8); MONO % 2.9 % (0.0-5.0); NEUTROPHILS # 4.7 K/mm3 (1.8-7.7); NEUTROPHILS % 60.2 % (36.0-66.0); PLATELET COUNT, AUTOMATED 259 k/mm3 (150-450); RED CELL DISTRIBUTION WIDTH 14.1 % (11.5-14.5); WHITE BLOOD COUNT 7.8 K/mm3 (4.0-10.0)
[2017-04-26 19:07] LABS: ALBUMIN 3.9 GM/DL (3.2-5.2); ALBUMIN/GLOBULIN RATIO 0.98 (1.00-1.93); ALKALINE PHOSPHATASE 96 U/L (45-117); ALT/SGPT 18 U/L (12-78); ANION GAP 7 MEQ/L (8-16); AST/SGOT 8 U/L (15-37); BILIRUBIN,DIRECT < 0.1 MG/DL (0.0-0.2); BILIRUBIN,TOTAL 0.3 MG/DL (0.2-1.0); BLOOD UREA NITROGEN 6 MG/DL (7-18); CALCIUM LEVEL 9.4 MG/DL (8.5-10.1); CARBON DIOXIDE LEVEL 31 MEQ/L (21-32); CHLORIDE LEVEL 109 MEQ/L (98-107); CREATININE FOR GFR 0.84 MG/DL (0.55-1.02); GLOMERULAR FILTRATION RATE > 60.0 (>58); GLUCOSE, FASTING 96 MG/DL (70-105); POTASSIUM SERUM 3.5 MEQ/L (3.5-5.1); SODIUM LEVEL 147 MEQ/L (136-145); TOTAL PROTEIN 7.9 GM/DL (6.4-8.2)
[2017-04-26] MEDS ORDERED: ISOVUE-370 76% 100ML VIAL (Q9967) As Ordered ONE (19:15)
--- NOTE | 2017-04-26 20:00 | REPUSA ---
CT of the abdomen and pelvis with contrast Clinical statement: Pain. Technique: Multiple axial CT images were obtained from the base of the lungs through the floor of the pelvis utilizing 5 mm axial slices after administration of nonionic intravenous contrast. Coronal an d sagittal reconstructions were also obtained. No comparison is available. Findings: Chest: The visualized lung bases are clear. Abdomen: The liver, spleen, pancreas, kidneys, and adrenal glands are unremarkable. The aorta is with in normal limits. There is no evidence of abdominal lymphadenopathy or ascites. Pelvis: The bowel is unremarkable, with no obstructive or inflammatory changes. The urinary bladder i s within normal limits. The other pelvic structures appear grossly intact. There is no evidence of pe lvic lymphadenopathy or ascites. Bones: There are no suspicious osseous abnormalities seen. Impression: Unremarkable CT examination of the abdomen and pelvis.
[2017-04-26 20:28] VITALS: BP 108/62
[2017-07-01] MEDS ORDERED: ALBU17IN INH (10:47)
[2017-07-01] MEDS ORDERED: BREO1INH INH (10:47)
== END 2017-04-26 20:48 | disposition home or self-care (01) ==
LOC: M ED 17:40
DX: R19.7 Diarrhea, unspecified (principal); Z88.6 Allergy status to analgesic agent; Z88.8 Allergy status to other drugs, medicaments and biological substances
CPT/HCPCS: 36415; 74177; 80048; 80076; 81001; 83690; 85025; 87086; 96374; 96375; 99283; J2405; Q9967

== ENCOUNTER 2017-05-18 15:32 | Emergency (ER) | payer OTHER ==
[~2017-05-18] VITALS: Ht 172.7 cm; Wt 83.7 kg
[2017-05-18 15:32] VITALS: BP 116/70
[2017-05-18] MEDS ORDERED: VITA1CAP40 PO (15:38)
[2017-05-18] MEDS ORDERED: ZOLP5TAB PO (15:38)
[2017-05-18] MEDS ORDERED: VITA2000 PO (15:38)
[2017-05-18] MEDS ORDERED: TRAZ50TA11 (15:38)
[2017-05-18] MEDS ORDERED: ACETGRA (15:38)
[2017-05-18] MEDS ORDERED: TYLE325T5 PO ×2 (15:38→16:00)
[2017-05-18] MEDS ORDERED: CYCL5TAB PO (16:00)
[2017-07-01] MEDS ORDERED: ALBU17IN INH (10:47)
[2017-07-01] MEDS ORDERED: BREO1INH INH (10:47)
== END 2017-05-18 16:25 | disposition home or self-care (01) ==
LOC: M ED 15:32
DX: M54.5 Low back pain (principal); M62.830 Muscle spasm of back; F17.200 Nicotine dependence, unspecified, uncomplicated; Z79.899 Other long term (current) drug therapy; Z88.6 Allergy status to analgesic agent; Z88.8 Allergy status to other drugs, medicaments and biological substances

== ENCOUNTER 2017-06-11 19:43 | Emergency (ER) | payer OTHER ==
[~2017-06-11] VITALS: Ht 172.7 cm; Wt 81.8 kg
[~2017-06-11 19:43] MED LIST changes: +ACETGRA; +CYCL5TAB PO; +TRAZ50TA11; +TYLE325T5 PO; +VITA1CAP40 PO; +VITA2000 PO; +ZOLP5TAB PO
[2017-06-11] MEDS ORDERED: TRAZ50TA11 PO (20:10)
[2017-06-11] MEDS ORDERED: GI COCKTAIL 50ML BTL(HYOSCYAMINE/MAALOX/LIDOCAINE VISCOUS)(1:3:1) PO ONE (22:00)
[2017-06-11] MEDS ORDERED: MYLA1SUS PO (22:10)
[2017-06-11 22:24] VITALS: BP 132/58
[2017-07-01] MEDS ORDERED: ALBU17IN INH (10:47)
[2017-07-01] MEDS ORDERED: BREO1INH INH (10:47)
== END 2017-06-11 22:25 | disposition home or self-care (01) ==
LOC: M ED 19:43
DX: K21.9 Gastro-esophageal reflux disease without esophagitis (principal); Z88.8 Allergy status to other drugs, medicaments and biological substances; Z79.899 Other long term (current) drug therapy

== ENCOUNTER → 2017-06-20 | Outpatient (REF) | payer OTHER ==
[~2017-06-20] MED LIST changes: +ALBU17IN INH; +BREO1INH INH; +MYLA1SUS PO; +TRAZ50TA11 PO
== END ==
LOC: M LAB REF 17:31
PROVIDERS: ATTEND Obstetrics & Gynecology
DX: R10.2 Pelvic and perineal pain (principal)

== ENCOUNTER → 2017-07-05 | Day surgery (SDC) | payer OTHER ==
[~2017-07-05] VITALS: Ht 172.7 cm; Wt 81.6 kg
[~2017-07-05] MED LIST changes: +BUPIVACAINE HCL 0.25% 30 ML VIAL As Ordered ONE; +LR 1,000 ML IV SCH; +METHYLENE BLUE 0.5% (5MG/ML) 10 ML AMP (PROVAYBLUE)(Q9968 PER 1MG) As Ordered ONE; +SILVER NITRATE APPLICATOR As Ordered ONE
[2017-07-05 06:20] LABS: MEAN CORPUSCULAR HGB CONC 32.4 g/dl (32.0-36.5); MEAN CORPUSCULAR VOLUME 95.6 fl (80.0-96.0); RED CELL DISTRIBUTION WIDTH 13.8 % (11.5-14.5); WHITE BLOOD COUNT 9.3 10^3/uL (4.0-10.0)
[2017-07-05 06:23] VITALS: BP 118/57
[2017-07-05 06:39] LABS: CONTROL LINE HCG INT CTR LINE PRESENT
== END ==
LOC: M SDC 05:58
PROVIDERS: ATTEND Obstetrics & Gynecology
DX: R10.2 Pelvic and perineal pain (principal); Z53.09 Procedure and treatment not carried out because of other contraindication

== ENCOUNTER → 2017-07-22 | Outpatient (CLI) | payer OTHER ==
[~2017-07-22] MED LIST changes: -BUPIVACAINE HCL 0.25% 30 ML VIAL As Ordered ONE; -LR 1,000 ML IV SCH; -METHYLENE BLUE 0.5% (5MG/ML) 10 ML AMP (PROVAYBLUE)(Q9968 PER 1MG) As Ordered ONE; -SILVER NITRATE APPLICATOR As Ordered ONE
[2017-07-22 09:44] LABS: BASO % 0.3 % (0.0-1.0); EOS # 0.1 10^3/uL (0.0-0.50); EOS % 1.2 % (0.0-3.0); IMMATURE GRANULOCYTE % 0.4 % (0-0); LYMPH # 3.3 10^3/uL (1.5-4.5); LYMPH % 30.1 % (24.0-44.0); MEAN CORPUSCULAR HGB CONC 32.5 g/dl (32.0-36.5); MEAN CORPUSCULAR VOLUME 95.4 fl (80.0-96.0); MONO # 0.5 10^3/uL (0.0-0.8); MONO % 4.6 % (0.0-5.0); NEUTROPHILS % 63.4 % (36.0-66.0); PLATELET COUNT, AUTOMATED 276 10^3/uL (150-450); RED CELL DISTRIBUTION WIDTH 13.7 % (11.5-14.5)
[2017-07-22 10:05] LABS: ALBUMIN 3.5 GM/DL (3.2-5.2); ALBUMIN/GLOBULIN RATIO 0.92 (1.00-1.93); ALKALINE PHOSPHATASE 96 U/L (45-117); ALT/SGPT 14 U/L (12-78); ANION GAP 8 MEQ/L (8-16); AST/SGOT 8 U/L (15-37); BILIRUBIN,TOTAL 0.2 MG/DL (0.2-1.0); BLOOD UREA NITROGEN 6 MG/DL (7-18); CALCIUM LEVEL 8.5 MG/DL (8.5-10.1); CARBON DIOXIDE LEVEL 27 MEQ/L (21-32); CHLORIDE LEVEL 108 MEQ/L (98-107); CREATININE FOR GFR 0.74 MG/DL (0.55-1.02); GLOMERULAR FILTRATION RATE > 60.0 (>58); GLUCOSE, FASTING 123 MG/DL (70-105); POTASSIUM SERUM 3.9 MEQ/L (3.5-5.1); SODIUM LEVEL 143 MEQ/L (136-145); TOTAL PROTEIN 7.3 GM/DL (6.4-8.2)
--- NOTE | 2017-07-22 22:44 | ECGEPIP ---
Stationary ECG Study [facility] Test Date: 2017-07-22 Pat Name: WEST JARRETT Department: Room: - Gender: F Follow Up Clerk: MARTIN : 1970 Requested By: Eulalia George Order Number: [id number] Reading MD: Tip Mckeon Measurements Intervals [place] Rate: 70 P: -5 TN: 168 QRS: 29 QRSD: 93 T: 30 QT: 383 QTc: 415 Interpretive Statements SINUS RHYTHM No significant change compared with 05/30/2015. Electronically Signed On 07-22-2017 22:44:46 EDT by Tip Mckeon
--- NOTE | 2017-07-23 03:03 | REP ---
Clinical: Preoperative assessment . Comparison: 05/30/2015 . Technique: PA and lateral. Findings: The mediastinum and cardiac silhouette are normal. Airway is patent and midline. The lung sharp are clear and without acute consolidation, effusion, or pneumothorax. The skeletal structures are intact and normal. Impression: 1. No acute cardiopulmonary process. Signed by Ridge Campos MD 07/23/2017 02:53 A
== END ==
LOC: M LAB 09:07
PROVIDERS: ATTEND Nurse Practitioner Adult Health
DX: Z01.810 Encounter for preprocedural cardiovascular examination (principal)

== ENCOUNTER → 2017-10-17 | Outpatient (CLI) | payer OTHER | LOC: M LRY 11:08 | DX: M94.0 Chondrocostal junction syndrome [Tietze] (principal) | CPT/HCPCS: 71046 ==

== ENCOUNTER → 2017-10-29 | Outpatient (REF) | payer OTHER | LOC: M LAB REF 13:39 | DX: R50.9 Fever, unspecified (principal) ==

== ENCOUNTER → 2017-12-15 | Outpatient (REF) | payer OTHER ==
[2017-12-15 17:36] LABS: APPEARANCE, URINE CLOUDY (CLEAR); BACTERIA, URINE AUTO 1+ (NEGATIVE); BILIRUBIN, URINE AUTO NEGATIVE (NEGATIVE); BLOOD, URINE BLOOD NEGATIVE (NEGATIVE); COLOR, URINE YELLOW (YELLOW); GLUCOSE, URINE (UA) AUTO NEGATIVE (NEGATIVE); KETONE, URINE AUTO NEGATIVE (NEGATIVE); LEUKOCYTE ESTERASE, URINE AUTO 3+ (NEGATIVE); MUCUS, URINE SMALL (NEGATIVE); NITRITE, URINE AUTO NEGATIVE (NEGATIVE); PROTEIN, URINE AUTO NEGATIVE (NEGATIVE); RBC, URINE AUTO 3 /HPF (0-3); SPECIFIC GRAVITY URINE AUTO 1.019 (1.002-1.035); SQUAMOUS EPITHELIAL CELL UR AU 11 /HPF (0-6); UROBILINOGEN, URINE AUTO 0.2 mg/dL (0.0-2.0); WBC, URINE AUTO 4 /HPF (0-3)
[2017-12-15 17:38] LABS: YEAST LIKE CELL URINE AUTO SMALL
== END ==
LOC: M LAB REF 17:21
DX: N39.0 Urinary tract infection, site not specified (principal)

== ENCOUNTER → 2017-12-23 | Outpatient (REF) | payer OTHER ==
[2017-12-24 11:10] LABS: CHLAMYDIA DNA AMPLIFICATION NEGATIVE (NEGATIVE); GC DNA AMPLIFICATION NEGATIVE (NEGATIVE)
== END ==
LOC: M SFHCLERA 15:00
DX: R30.0 Dysuria (principal)
CPT/HCPCS: 87086

== ENCOUNTER → 2018-03-14 | Outpatient (REF) | payer OTHER ==
[2018-03-14 13:31] LABS: APPEARANCE, URINE CLEAR (CLEAR); BACTERIA, URINE AUTO NEGATIVE (NEGATIVE); BILIRUBIN, URINE AUTO NEGATIVE (NEGATIVE); BLOOD, URINE BLOOD NEGATIVE (NEGATIVE); COLOR, URINE YELLOW (YELLOW); GLUCOSE, URINE (UA) AUTO NEGATIVE (NEGATIVE); KETONE, URINE AUTO NEGATIVE (NEGATIVE); LEUKOCYTE ESTERASE, URINE AUTO NEGATIVE (NEGATIVE); MUCUS, URINE SMALL (NEGATIVE); NITRITE, URINE AUTO NEGATIVE (NEGATIVE); PROTEIN, URINE AUTO NEGATIVE (NEGATIVE); RBC, URINE AUTO 1 /HPF (0-3); SPECIFIC GRAVITY URINE AUTO 1.017 (1.002-1.035); SQUAMOUS EPITHELIAL CELL UR AU 0 /HPF (0-6); UROBILINOGEN, URINE AUTO 0.2 mg/dL (0.0-2.0); WBC, URINE AUTO 1 /HPF (0-3)
== END ==
LOC: M LAB REF 13:09
DX: N39.0 Urinary tract infection, site not specified (principal)

== ENCOUNTER → 2018-03-24 | Outpatient (REF) | payer OTHER ==
[2018-03-24 20:40] LABS: BASO # 0.1 10^3/uL (0.0-0.2); BASO % 0.6 % (0.0-1.0); EOS # 0.1 10^3/uL (0.0-0.50); EOS % 1.5 % (0.0-3.0); HEMATOCRIT 36.4 % (36.0-47.0); HEMOGLOBIN 11.7 g/dl (12.0-15.5); IMMATURE GRANULOCYTE % 0.4 % (0-3.0); LYMPH # 3.4 10^3/uL (1.5-4.5); LYMPH % 39.5 % (24.0-44.0); MEAN CORPUSCULAR HEMOGLOBIN 31.3 pg (27.0-33.0); MEAN CORPUSCULAR HGB CONC 32.1 g/dl (32.0-36.5); MEAN CORPUSCULAR VOLUME 97.3 fl (80.0-96.0); MONO # 0.5 10^3/uL (0.0-0.8); MONO % 5.9 % (0.0-5.0); NEUTROPHILS # 4.5 10^3/uL (1.8-7.7); NEUTROPHILS % 52.1 % (36.0-66.0); PLATELET COUNT, AUTOMATED 252 10^3/uL (150-450); RED BLOOD COUNT 3.74 10^6/uL (4.00-5.40); RED CELL DISTRIBUTION WIDTH 13.9 % (11.5-14.5); WHITE BLOOD COUNT 8.5 10^3/uL (4.0-10.0)
[2018-03-24 20:51] LABS: APPEARANCE, URINE HAZY (CLEAR); BACTERIA, URINE AUTO NEGATIVE (NEGATIVE); BILIRUBIN, URINE AUTO NEGATIVE (NEGATIVE); BLOOD, URINE BLOOD NEGATIVE (NEGATIVE); COLOR, URINE YELLOW (YELLOW); GLUCOSE, URINE (UA) AUTO NEGATIVE (NEGATIVE); KETONE, URINE AUTO NEGATIVE (NEGATIVE); LEUKOCYTE ESTERASE, URINE AUTO NEGATIVE (NEGATIVE); MUCUS, URINE SMALL (NEGATIVE); NITRITE, URINE AUTO NEGATIVE (NEGATIVE); PROTEIN, URINE AUTO NEGATIVE (NEGATIVE); RBC, URINE AUTO 3 /HPF (0-3); SPECIFIC GRAVITY URINE AUTO 1.023 (1.002-1.035); SQUAMOUS EPITHELIAL CELL UR AU 1 /HPF (0-6); WBC, URINE AUTO 1 /HPF (0-3)
[2018-03-24 21:11] LABS: ALBUMIN 3.8 GM/DL (3.2-5.2); ALBUMIN/GLOBULIN RATIO 0.97 (1.00-1.93); ALKALINE PHOSPHATASE 81 U/L (45-117); ALT/SGPT 30 U/L (12-78); AST/SGOT 11 U/L (7-37); BILIRUBIN,DIRECT 0.1 MG/DL (0.0-0.2); BILIRUBIN,TOTAL 0.3 MG/DL (0.2-1.0); TOTAL PROTEIN 7.7 GM/DL (6.4-8.2); VALPROIC ACID (DEPAKOTE) 45.6 UG/ML (50.0-100.0)
[2018-03-24 22:24] LABS: CHLAMYDIA DNA AMPLIFICATION NEGATIVE (NEGATIVE); GC DNA AMPLIFICATION NEGATIVE (NEGATIVE)
== END ==
LOC: M SFHCLERA 15:35
DX: F31.81 Bipolar II disorder (principal)

== ENCOUNTER → 2018-04-12 | Outpatient (REF) | payer OTHER | LOC: M LAB REF 04-15 12:19 | DX: J02.9 Acute pharyngitis, unspecified (principal) | CPT/HCPCS: 87070 ==

== ENCOUNTER → 2018-04-14 | Outpatient (CLI) | payer OTHER ==
[2018-04-14 12:39] LABS: VALPROIC ACID (DEPAKOTE) 59.6 UG/ML (50.0-100.0)
== END ==
LOC: M LAB 11:12
DX: F31.81 Bipolar II disorder (principal)
CPT/HCPCS: 80164

== ENCOUNTER → 2018-05-15 | Outpatient (REF) | payer OTHER ==
[2018-05-15 13:30] LABS: ALBUMIN 3.1 GM/DL (3.2-5.2); ALBUMIN/GLOBULIN RATIO 0.89 (1.00-1.93); ALKALINE PHOSPHATASE 65 U/L (45-117); ALT/SGPT 29 U/L (12-78); AMYLASE 56 U/L (25-115); ANION GAP 8 MEQ/L (8-16); AST/SGOT 14 U/L (7-37); BILIRUBIN,TOTAL 0.1 MG/DL (0.2-1.0); BLOOD UREA NITROGEN 11 MG/DL (7-18); CALCIUM LEVEL 9.1 MG/DL (8.5-10.1); CARBON DIOXIDE LEVEL 27 MEQ/L (21-32); CHLORIDE LEVEL 111 MEQ/L (98-107); CREATININE FOR GFR 0.68 MG/DL (0.55-1.30); GLOMERULAR FILTRATION RATE > 60.0 (>58); GLUCOSE, FASTING 85 MG/DL (70-100); LIPASE 96 U/L (73-393); POTASSIUM SERUM 4.5 MEQ/L (3.5-5.1); SODIUM LEVEL 146 MEQ/L (136-145); TOTAL PROTEIN 6.6 GM/DL (6.4-8.2)
[2018-05-15 13:56] LABS: ESTIMATED AVERAGE GLUCOSE 97 MG/DL (60-110)
== END ==
LOC: M SFHCLERA 08:53
DX: R73.03 Prediabetes (principal); R10.11 Right upper quadrant pain

== ENCOUNTER → 2018-06-20 | Outpatient (REF) | payer OTHER | LOC: M SFHCLERA 18:25 | DX: R19.7 Diarrhea, unspecified (principal); J02.9 Acute pharyngitis, unspecified; M54.5 Low back pain | CPT/HCPCS: 82705 ==

== ENCOUNTER → 2018-06-20 | Outpatient (REF) | payer OTHER ==
[2018-06-20 13:12] LABS: BASO # 0.1 10^3/uL (0.0-0.2); BASO % 0.6 % (0.0-1.0); EOS # 0.1 10^3/uL (0.0-0.50); EOS % 1.4 % (0.0-3.0); HEMATOCRIT 37.3 % (36.0-47.0); HEMOGLOBIN 12.2 g/dl (12.0-15.5); IMMATURE GRANULOCYTE % 0.3 % (0-3.0); LYMPH # 3.8 10^3/uL (1.5-4.5); MEAN CORPUSCULAR HEMOGLOBIN 32.4 pg (27.0-33.0); MEAN CORPUSCULAR HGB CONC 32.7 g/dl (32.0-36.5); MEAN CORPUSCULAR VOLUME 99.2 fl (80.0-96.0); MONO # 0.5 10^3/uL (0.0-0.8); MONO % 5.8 % (0.0-5.0); NEUTROPHILS # 4.3 10^3/uL (1.8-7.7); NEUTROPHILS % 48.9 % (36.0-66.0); PLATELET COUNT, AUTOMATED 215 10^3/uL (150-450); RED BLOOD COUNT 3.76 10^6/uL (4.00-5.40); RED CELL DISTRIBUTION WIDTH 14.4 % (11.5-14.5); WHITE BLOOD COUNT 8.8 10^3/uL (4.0-10.0)
[2018-06-20 13:36] LABS: ALBUMIN 3.6 GM/DL (3.2-5.2); ALBUMIN/GLOBULIN RATIO 0.92 (1.00-1.93); ALKALINE PHOSPHATASE 76 U/L (45-117); ALT/SGPT 29 U/L (12-78); ANION GAP 8 MEQ/L (8-16); AST/SGOT 19 U/L (7-37); BILIRUBIN,TOTAL 0.2 MG/DL (0.2-1.0); BLOOD UREA NITROGEN 9 MG/DL (7-18); CALCIUM LEVEL 9.1 MG/DL (8.5-10.1); CARBON DIOXIDE LEVEL 25 MEQ/L (21-32); CHLORIDE LEVEL 111 MEQ/L (98-107); CREATININE FOR GFR 0.63 MG/DL (0.55-1.30); GLOMERULAR FILTRATION RATE > 60.0 (>58); GLUCOSE, FASTING 75 MG/DL (70-100); POTASSIUM SERUM 4.9 MEQ/L (3.5-5.1); SODIUM LEVEL 144 MEQ/L (136-145); TOTAL PROTEIN 7.5 GM/DL (6.4-8.2)
[2018-06-20 13:38] LABS: APPEARANCE, URINE CLEAR (CLEAR); BACTERIA, URINE AUTO NEGATIVE (NEGATIVE); BILIRUBIN, URINE AUTO NEGATIVE (NEGATIVE); BLOOD, URINE BLOOD NEGATIVE (NEGATIVE); COLOR, URINE YELLOW (YELLOW); GLUCOSE, URINE (UA) AUTO NEGATIVE (NEGATIVE); KETONE, URINE AUTO NEGATIVE (NEGATIVE); LEUKOCYTE ESTERASE, URINE AUTO NEGATIVE (NEGATIVE); MUCUS, URINE SMALL (NEGATIVE); NITRITE, URINE AUTO NEGATIVE (NEGATIVE); PROTEIN, URINE AUTO NEGATIVE (NEGATIVE); RBC, URINE AUTO 0 /HPF (0-3); SPECIFIC GRAVITY URINE AUTO 1.021 (1.002-1.035); SQUAMOUS EPITHELIAL CELL UR AU 0 /HPF (0-6); WBC, URINE AUTO 1 /HPF (0-3)
== END ==
LOC: M SFHCLERA 10:34
DX: J02.9 Acute pharyngitis, unspecified (principal)

== ENCOUNTER → 2018-06-23 | Outpatient (CLI) | payer OTHER | LOC: M RAD 06:57 | DX: R10.9 Unspecified abdominal pain (principal) | CPT/HCPCS: 76705 ==

== ENCOUNTER → 2018-07-25 | Outpatient (CLI) | payer OTHER ==
[~2018-07-25] MED LIST changes: -ACETGRA; -ALBU17IN INH; -AUGM875T28 PO; -BREO1INH INH; -CYCL5TAB PO; +ISOVUE-370 76% 100ML VIAL (Q9967) As Ordered; -MAGICMW MT; -MYLA1SUS PO; -PRED20TA PO; -TRAZ50TA11; -TRAZ50TA11 PO; -TYLE325T5 PO; -VITA1CAP40 PO; -VITA2000 PO; -ZOFR4TAB3 PO; -ZOLP5TAB PO
== END ==
LOC: M RAD 14:28
DX: R10.33 Periumbilical pain (principal)
CPT/HCPCS: Q9967

== ENCOUNTER → 2018-11-11 | Outpatient (REF) | payer OTHER ==
[~2018-11-11] MED LIST changes: +ACETGRA; +ALBU17IN INH; +AUGM875T28 PO; +BREO1INH INH; +CYCL5TAB PO; -ISOVUE-370 76% 100ML VIAL (Q9967) As Ordered; +MAGICMW MT; +MYLA1SUS PO; +PRED20TA PO; +TRAZ-160; +TRAZ-160 PO; +TRAZ-163; +TYLE325T5 PO; +VITA2000 PO; +VITA50005 PO; +ZOFR4TAB14 PO; +ZOLP5TAB PO
[2018-11-11 11:53] LABS: BASO # 0.1 10^3/uL (0.0-0.2); BASO % 0.7 % (0.0-1.0); EOS # 0.2 10^3/uL (0.0-0.50); HEMATOCRIT 38.1 % (36.0-47.0); HEMOGLOBIN 12.5 g/dl (12.0-15.5); LYMPH # 4.1 10^3/uL (1.5-4.5); LYMPH % 53.9 % (24.0-44.0); MEAN CORPUSCULAR HEMOGLOBIN 31.9 pg (27.0-33.0); MEAN CORPUSCULAR HGB CONC 32.8 g/dl (32.0-36.5); MEAN CORPUSCULAR VOLUME 97.2 fl (80.0-96.0); MONO # 0.5 10^3/uL (0.0-0.8); MONO % 6.6 % (0.0-5.0); NEUTROPHILS # 2.8 10^3/uL (1.8-7.7); NEUTROPHILS % 36.4 % (36.0-66.0); PLATELET COUNT, AUTOMATED 237 10^3/uL (150-450); RED BLOOD COUNT 3.92 10^6/uL (4.00-5.40); WHITE BLOOD COUNT 7.6 10^3/uL (4.0-10.0)
[2018-11-11 12:14] LABS: ALBUMIN 3.9 GM/DL (3.2-5.2); ALT/SGPT 16 U/L (12-78); BILIRUBIN,DIRECT < 0.1 MG/DL (0.0-0.2); BILIRUBIN,TOTAL 0.2 MG/DL (0.2-1.0); TOTAL PROTEIN 7.6 GM/DL (6.4-8.2)
== END ==
LOC: M SFHCLERA 09:03
PROVIDERS: ATTEND Family Medicine
DX: F31.81 Bipolar II disorder (principal)

== ENCOUNTER → 2019-01-13 | Outpatient (CLI) | payer OTHER ==
--- NOTE | 2019-01-14 01:52 | REP ---
Clinical: Left shoulder pain. Impingement syndrome. Technique: Internal rotation, external rotation, and Y view. Findings: No acute fracture or dislocation. The acromioclavicular and glenohumeral joints are intact. No periarticular calcifications or degenerative changes are appreciated. Sub acromial space measures 6.7 mm on internal rotation and 7.4 mm on external rotation views. Surrounding soft tissues are unremarkable. Impression: No acute fracture or dislocation. The osseous structures appear intact and relatively normal for age. There appears to be decrease subacromial space which warrants physical examination. Electronically Signed by Ridge Campos MD 01/14/2019 01:43 A
== END ==
LOC: M LRY 12:02
PROVIDERS: ATTEND Family Medicine
DX: M75.42 Impingement syndrome of left shoulder (principal)

== ENCOUNTER → 2019-01-31 | Outpatient (CLI) | payer OTHER ==
--- NOTE | 2019-01-31 14:15 | REP ---
LEFT SHOULDER THREE VIEWS: HISTORY: Pain. There is no acute fracture. The joint spaces are normal in appearance. IMPRESSION: There is no acute fracture or dislocation. Electronically Signed by Andrea Zamarripa MD 01/31/2019 02:29 P
== END ==
LOC: M ADAMS 13:24
PROVIDERS: ATTEND Physician Assistant
DX: M25.512 Pain in left shoulder (principal)

== ENCOUNTER → 2019-03-30 | Outpatient (CLI) | payer OTHER ==
[~2019-03-30] MED LIST changes: -TRAZ-160; -TRAZ-160 PO; +TRAZ-252; +TRAZ-252 PO
== END ==
LOC: M LABDRWAD 12:31 → M LAB 13:00
PROVIDERS: ATTEND Physician Assistant
DX: A08.4 Viral intestinal infection, unspecified (principal); Z53.9 Procedure and treatment not carried out, unspecified reason

== ENCOUNTER → 2019-06-05 | Outpatient (REF) | payer OTHER ==
[~2019-06-05] MED LIST changes: -TRAZ-163; +TRAZ-257
== END ==
LOC: M SFHCLERA 09:31
PROVIDERS: ATTEND Family Medicine
DX: F31.81 Bipolar II disorder (principal)

== ENCOUNTER → 2019-06-11 | Outpatient (CLI) | payer OTHER ==
--- NOTE | 2019-06-12 08:33 | ECHO ---
DATE OF PROCEDURE: 06/11/2019 REFERRING PHYSICIAN: Camille Marshall MD INDICATION: Syncope. HEIGHT: 172 cm WEIGHT: 85 kg DIMENSIONS: IVS: 1.0 LV: 4.3 LVPW: 0.9 LA: 3.2 Aorta: 2.6 IVC: 1.0 Mitral E wave velocity: 74 A wave: 71 E prime septal: 8.3 E prime lateral: 13.5 FINDINGS: The study is of acceptable technical quality. The patient is in sinus rhythm. Left ventricle is normal size and systolic function with estimated left ventricle ejection fraction (LVEF) 65-70%. No segmental wall motion abnormalities are appreciated. Right ventricle is also normal size and systolic function. Both atria appear normal. Aortic, mitral and tricuspid valves appear normal. Pulmonic valve was not seen. No pericardial effusion is noted. Inferior vena cava is normal size. Aortic root, aortic arch and visualized segment of abdominal aorta appear normal. Doppler interrogation reveals no aortic stenosis or insufficiency. There is also no mitral stenosis or insufficiency or tricuspid stenosis or insufficiency. Mitral inflow pattern and tissue Doppler imaging of mitral annulus revealed likely normal diastolic function. CONCLUSIONS: 1. Study is of acceptable technical quality. 2. Normal LV size with preserved LV systolic function and likely normal diastolic function. 3. No significant valvular disease. 4. Normal central venous pressure. COMMENT: Subacute bacterial endocarditis (SBE) prophylaxis is not recommended. Essentially normal echocardiogram.
== END ==
LOC: M CARPUL 11:27
PROVIDERS: ATTEND Family Medicine
DX: R55 Syncope and collapse (principal)

== ENCOUNTER → 2019-07-28 | Outpatient (REF) | payer OTHER ==
[~2019-07-28] MED LIST changes: +TRAZ-163; -TRAZ-257
[2019-07-28 16:58] LABS: BASO # 0.1 10^3/uL (0.0-0.2); BASO % 0.9 % (0.0-1.0); EOS # 0.2 10^3/uL (0.0-0.5); EOS % 2.5 % (0.0-3.0); HEMATOCRIT 39.6 % (36.0-47.0); HEMOGLOBIN 12.3 g/dl (12.0-15.5); LYMPH # 3.3 10^3/uL (1.5-5.0); LYMPH % 43.4 % (24.0-44.0); MEAN CORPUSCULAR HEMOGLOBIN 31.4 pg (27.0-33.0); MEAN CORPUSCULAR HGB CONC 31.1 g/dl (32.0-36.5); MONO # 0.5 10^3/uL (0.0-0.8); MONO % 6.7 % (0.0-5.0); NEUTROPHILS # 3.5 10^3/uL (1.5-8.5); NEUTROPHILS % 46.2 % (36.0-66.0); PLATELET COUNT, AUTOMATED 279 10^3/uL (150-450); RED BLOOD COUNT 3.92 10^6/uL (4.00-5.40); WHITE BLOOD COUNT 7.6 10^3/uL (4.0-10.0)
[2019-07-28 17:03] LABS: ALBUMIN 3.6 GM/DL (3.2-5.2); ALT/SGPT 21 U/L (12-78); BILIRUBIN,DIRECT < 0.1 MG/DL (0.0-0.2); BILIRUBIN,TOTAL 0.1 MG/DL (0.2-1.0); TOTAL PROTEIN 7.5 GM/DL (6.4-8.2); VALPROIC ACID (DEPAKOTE) < 3.0 UG/ML (50.0-100.0)
== END ==
LOC: M SFHCLERA 10:24
PROVIDERS: ATTEND Family Medicine
DX: F31.81 Bipolar II disorder (principal)

== ENCOUNTER → 2019-12-10 | Outpatient (REF) | payer OTHER ==
[~2019-12-10] MED LIST changes: -TRAZ-163; +TRAZ-257
== END ==
LOC: M SFHCLERA 15:56
PROVIDERS: ATTEND Family Medicine
DX: Z12.4 Encounter for screening for malignant neoplasm of cervix (principal)

== ENCOUNTER → 2020-08-08 | Outpatient (CLI) | payer OTHER ==
[2020-08-08 12:37] LABS: BASO # 0.1 10^3/uL (0.0-0.2); BASO % 0.9 % (0.0-1.0); EOS # 0.1 10^3/uL (0.0-0.5); EOS % 1.9 % (0.0-3.0); HEMATOCRIT 38.6 % (36.0-47.0); HEMOGLOBIN 12.1 g/dl (12.0-15.5); LYMPH # 2.8 10^3/uL (1.5-5.0); MEAN CORPUSCULAR HEMOGLOBIN 30.1 pg (27.0-33.0); MEAN CORPUSCULAR HGB CONC 31.3 g/dl (32.0-36.5); MONO # 0.4 10^3/uL (0.0-0.8); NEUTROPHILS # 3.3 10^3/uL (1.5-8.5); NEUTROPHILS % 48.8 % (36.0-66.0); PLATELET COUNT, AUTOMATED 268 10^3/uL (150-450); RED BLOOD COUNT 4.02 10^6/uL (4.00-5.40); WHITE BLOOD COUNT 6.7 10^3/uL (4.0-10.0)
[2020-08-08 13:18] LABS: ERYTHROCYTE SEDIMENTATION RATE 66 mm/hr (0-20)
--- NOTE | 2020-08-08 14:28 | REP ---
INDICATION: DIARRHEA, UNSPECIFIED/LABS FIRST XRAY SECOND. COMPARISON: 03/24/2018. TECHNIQUE: Supine and erect views of the abdomen and pelvis are performed. A PA view of the chest is performed. FINDINGS: There is no evidence of free intraperitoneal air and no evidence of bowel obstruction. No dilated small bowel loops are seen. Metallic clips are seen in the right upper quadrant. Mild vascular calcifications are seen in the pelvis. The PA view of the chest demonstrates no acute infiltrate. The heart is normal in size. The mediastinal silhouette is unremarkable. IMPRESSION: Negative abdominal series. <Electronically signed by Juan J Connor > 08/08/20 [id number]
== END ==
LOC: M LAB 11:40
PROVIDERS: ATTEND Family Medicine
DX: R19.7 Diarrhea, unspecified (principal)

== ENCOUNTER → 2020-11-14 | Outpatient (CLI) | payer OTHER ==
--- NOTE | 2020-11-14 16:09 | REP ---
INDICATION: ACUTE LT SIDED T BACK PAIN. COMPARISON: Comparison study July 02, 2010.. TECHNIQUE: Three views of the thoracic spine are provided. FINDINGS: Thoracic vertebral body heights are preserved. Alignment is normal. Swimmer's lateral view shows no additional abnormality. On AP radiograph, there is a minimal curvature unchanged. Pedicles and posterior elements are intact. No paravertebral soft tissue mass or hematoma is seen. IMPRESSION: Minimal T-spine curvature unchanged from July 02, 2010. No fracture or collapse is seen. No bony destructive lesion. <Electronically signed by Shaggy Green > 11/14/20 [id number]
--- NOTE | 2020-11-14 16:11 | REP ---
INDICATION: ACUTE LT SIDED T BACK PAIN. COMPARISON: Comparison chest x-ray 08 August 2020.. TECHNIQUE: Five views including PA chest. FINDINGS: PA chest radiograph is normal. There is no evidence of infiltrate. No pneumothorax or hydrothorax is seen. Pleural angles are sharp. Heart size is normal. No mediastinal widening is noted. Pulmonary vasculature is not increased. Multiple views of the left ribcage show no visible rib fracture or bony destructive lesion. There are clips in right upper quadrant of the abdomen. IMPRESSION: No active disease. No acute rib abnormality noted. <Electronically signed by Shaggy Green > 11/14/20 [id number]
== END ==
LOC: M ADAMS 15:32
PROVIDERS: ATTEND Nurse Practitioner Family
DX: M54.6 Pain in thoracic spine (principal)

== ENCOUNTER → 2020-11-14 | Outpatient (REF) | payer OTHER | LOC: M SFHCLERA 13:45 | PROVIDERS: ATTEND Nurse Practitioner Family | DX: R05 Cough (principal) ==

== ENCOUNTER → 2020-12-12 | Outpatient (REF) | payer OTHER | LOC: M SFHCLERA 13:34 | PROVIDERS: ATTEND Nurse Practitioner Family | DX: J02.9 Acute pharyngitis, unspecified (principal) ==

== ENCOUNTER → 2021-02-21 | Outpatient (CLI) | payer OTHER ==
--- NOTE | 2021-02-21 15:53 | REP ---
INDICATION: PAIN IN RIGHT SHOULDER. COMPARISON: None. TECHNIQUE: Three views of the right shoulder were performed. FINDINGS: The acromioclavicular and glenohumeral relationships are within normal limits. There is no acute fracture or destructive osseous lesion. IMPRESSION: Within normal limits <Electronically signed by Rickey Jorgensen > 02/21/21 [id number]
== END ==
LOC: M RAD 15:23
PROVIDERS: ATTEND Nurse Practitioner Family
DX: M25.511 Pain in right shoulder (principal)

== ENCOUNTER → 2021-03-02 | Outpatient (CLI) | payer OTHER ==
--- NOTE | 2021-03-02 14:11 | REP ---
INDICATION: BIPOLAR II DISORDER-LAB 1ST COMPARISON: 10/17/2017 TECHNIQUE: PA and lateral. FINDINGS: The mediastinum and cardiac silhouette are normal. The lung sharp are clear and without acute consolidation, effusion, or pneumothorax. The skeletal structures are intact and normal. IMPRESSION: No acute cardiopulmonary process. <Electronically signed by Ridge Campos > 03/02/21 [id number]
[2021-03-02 14:35] LABS: BASO # 0.1 10^3/uL (0.0-0.2); BASO % 0.7 % (0.0-1.0); EOS # 0.1 10^3/uL (0.0-0.5); EOS % 1.6 % (0.0-3.0); HEMATOCRIT 38.3 % (36.0-47.0); LYMPH # 3.1 10^3/uL (1.5-5.0); LYMPH % 38.3 % (24.0-44.0); MEAN CORPUSCULAR HEMOGLOBIN 30.9 pg (27.0-33.0); MEAN CORPUSCULAR HGB CONC 31.3 g/dl (32.0-36.5); MEAN CORPUSCULAR VOLUME 98.7 fl (80.0-96.0); MONO # 0.4 10^3/uL (0.0-0.8); MONO % 4.8 % (2.0-8.0); NEUTROPHILS # 4.4 10^3/uL (1.5-8.5); NEUTROPHILS % 54.1 % (36.0-66.0); PLATELET COUNT, AUTOMATED 267 10^3/uL (150-450); RED BLOOD COUNT 3.88 10^6/uL (4.00-5.40); WHITE BLOOD COUNT 8.1 10^3/uL (4.0-10.0)
[2021-03-02 15:13] LABS: ALBUMIN 3.6 GM/DL (3.2-5.2); ALT/SGPT 16 U/L (12-78); BILIRUBIN,TOTAL 0.2 MG/DL (0.2-1.0); BLOOD UREA NITROGEN 9 MG/DL (7-18); CARBON DIOXIDE LEVEL 29 MEQ/L (21-32); CHLORIDE LEVEL 109 MEQ/L (98-107); CREATININE FOR GFR 0.81 MG/DL (0.55-1.30); GLOMERULAR FILTRATION RATE > 60.0 (>58); GLUCOSE, FASTING 138 MG/DL (70-100); POTASSIUM SERUM 3.8 MEQ/L (3.5-5.1); SODIUM LEVEL 143 MEQ/L (136-145); TOTAL PROTEIN 7.5 GM/DL (6.4-8.2); VALPROIC ACID (DEPAKOTE) < 3.0 UG/ML (50.0-100.0)
== END ==
LOC: M LAB 13:38
PROVIDERS: ATTEND Family Medicine
DX: F31.81 Bipolar II disorder (principal)

== ENCOUNTER → 2021-03-14 | Outpatient (REF) | payer OTHER | LOC: M SFHCLERA 15:50 | PROVIDERS: ATTEND Nurse Practitioner Family | DX: R30.0 Dysuria (principal) ==

== ENCOUNTER → 2021-03-16 | Outpatient (CLI) | payer OTHER ==
[~2021-03-16] MED LIST changes: +GASTROGRAFIN SOLUTION 30ML (Q9963) As Ordered ONE; +ISOVUE-370 76% 100ML VIAL As Ordered ONE
--- NOTE | 2021-03-16 11:56 | REP ---
INDICATION: LT LLQ ABD PAIN COMPARISON: 07/25/2018. TECHNIQUE: CT Scan of the abdomen and pelvis was performed with intravenous administration of 100 cc of Isovue 370, and oral contrast. FINDINGS: Lung bases: Unremarkable. Liver: Normal Gallbladder: Prior cholecystectomy. Spleen: Normal. Adrenals: Normal. Pancreas: Normal. Kidneys: Normal. Small and large bowel: Unremarkable. Free fluid: None. Abdominal aorta: No aneurysm or dissection. Adenopathy: None. Appendix: Not inflamed. Osseous structures: Unremarkable. Pelvis: No mass. IMPRESSION: Negative CT abdomen and pelvis. <Electronically signed by Juan J Connor > 03/16/21 [id number]
== END ==
LOC: M RAD 09:28
PROVIDERS: ATTEND Nurse Practitioner Family
DX: R10.32 Left lower quadrant pain (principal)
CPT/HCPCS: 74177; Q9963; Q9967

== ENCOUNTER → 2021-03-17 | Outpatient (REF) | payer OTHER ==
[~2021-03-17] MED LIST changes: -GASTROGRAFIN SOLUTION 30ML (Q9963) As Ordered ONE; -ISOVUE-370 76% 100ML VIAL As Ordered ONE
== END ==
LOC: M SFHCLERA 11:20
PROVIDERS: ATTEND Nurse Practitioner Family
DX: R10.32 Left lower quadrant pain (principal)

== ENCOUNTER → 2021-03-17 | Outpatient (REF) | payer OTHER | LOC: M SFHCLERA 17:54 | PROVIDERS: ATTEND Nurse Practitioner Family | DX: R10.32 Left lower quadrant pain (principal) ==

== ENCOUNTER → 2021-07-13 | Outpatient (REF) | payer OTHER | LOC: M SFHCLERA 11:24 | PROVIDERS: ATTEND Student in an Organized Health Care Education/Training Program | DX: J02.9 Acute pharyngitis, unspecified (principal) ==

== ENCOUNTER → 2021-09-13 | Outpatient (REF) | payer OTHER | LOC: M SFHCWAGY 17:12 | PROVIDERS: ATTEND Specialist | DX: Z12.4 Encounter for screening for malignant neoplasm of cervix (principal); R87.612 Low grade squamous intraepithelial lesion on cytologic smear of cervix (LGSIL) ==

== ENCOUNTER → 2022-01-02 | Outpatient (REF) | payer OTHER | LOC: M SFHCLERA 11:07 | PROVIDERS: ATTEND Family Medicine | DX: R05.9 Cough, unspecified (principal) ==

== ENCOUNTER → 2022-06-28 | Outpatient (REF) | payer OTHER | LOC: M SFHCPLAZ 09:58 | PROVIDERS: ATTEND Physician Assistant | DX: R05.1 Acute cough (principal) ==

== ENCOUNTER → 2022-07-19 | Outpatient (REF) | payer OTHER ==
[2022-07-19 17:54] LABS: APPEARANCE, URINE MANUAL CLEAR (CLEAR); BILIRUBIN, URINE MANUAL NEGATIVE (NEGATIVE); BLOOD URINE MANUAL NEGATIVE (NEGATIVE); COLOR, URINE MANUAL YELLOW (YELLOW); GLUCOSE, URINE (UA) MANUAL NEGATIVE (NEGATIVE); KETONE, URINE MANUAL NEGATIVE (NEGATIVE); LEUKOCYTE ESTERASE, URINE MAN NEGATIVE (NEGATIVE); NITRITE, URINE MANUAL NEGATIVE (NEGATIVE); PROTEIN, URINE MANUAL NEGATIVE (NEGATIVE); SPECIFIC GRAVITY,URINE MANUAL 1.015 (1.002-1.035); UROBILINOGEN, URINE MANUAL NORMAL (NORMAL)
== END ==
LOC: M SFHCLERA 16:47
PROVIDERS: ATTEND Student in an Organized Health Care Education/Training Program
DX: R10.2 Pelvic and perineal pain (principal)

== ENCOUNTER → 2022-08-02 | Outpatient (CLI) | payer OTHER ==
[2022-08-02 13:18] LABS: BASO # 0.1 10^3/uL (0.0-0.2); BASO % 0.8 % (0.0-1.0); EOS # 0.1 10^3/uL (0.0-0.5); EOS % 1.6 % (0.0-3.0); HEMATOCRIT 38.3 % (36.0-47.0); HEMOGLOBIN 11.9 g/dl (12.0-15.5); LYMPH # 3.3 10^3/uL (1.5-5.0); LYMPH % 45.2 % (24.0-44.0); MEAN CORPUSCULAR HEMOGLOBIN 30.4 pg (27.0-33.0); MEAN CORPUSCULAR HGB CONC 31.1 g/dl (32.0-36.5); MEAN CORPUSCULAR VOLUME 97.7 fl (80.0-96.0); MONO # 0.4 10^3/uL (0.0-0.8); NEUTROPHILS # 3.4 10^3/uL (1.5-8.5); PLATELET COUNT, AUTOMATED 266 10^3/uL (150-450); RED BLOOD COUNT 3.92 10^6/uL (4.00-5.40); WHITE BLOOD COUNT 7.4 10^3/uL (4.0-10.0)
[2022-08-02 13:41] LABS: HEMOGLOBIN A1c 5.6 %
[2022-08-02 13:56] LABS: ALBUMIN 3.6 GM/DL (3.2-5.2); ALT/SGPT 15 U/L (12-78); BILIRUBIN,TOTAL 0.2 MG/DL (0.2-1.0); BLOOD UREA NITROGEN 8 MG/DL (7-18); CALCIUM LEVEL 9.3 MG/DL (8.5-10.1); CARBON DIOXIDE LEVEL 28 MEQ/L (21-32); CHLORIDE LEVEL 109 MEQ/L (98-107); CHOLESTEROL LEVEL 168 MG/DL (<200); CREATININE FOR GFR 0.76 MG/DL (0.55-1.30); GLOMERULAR FILTRATION RATE > 60.0 (>51); GLUCOSE, FASTING 89 MG/DL (70-100); HDL CHOLESTEROL 25 MG/DL (>40); LDL CHOLESTEROL 111 MG/DL (<100); NON-HDL-C 143 MG/DL; POTASSIUM SERUM 4.5 MEQ/L (3.5-5.1); SODIUM LEVEL 140 MEQ/L (136-145); TOTAL PROTEIN 7.5 GM/DL (6.4-8.2); TRIGLYCERIDES LEVEL 162 MG/DL (<150)
== END ==
LOC: M LAB 11:47
PROVIDERS: ATTEND Student in an Organized Health Care Education/Training Program
DX: Z00.00 Encounter for general adult medical examination without abnormal findings (principal); R73.01 Impaired fasting glucose; E78.2 Mixed hyperlipidemia

== ENCOUNTER → 2023-01-09 | Outpatient (REF) | payer OTHER ==
[2023-01-09 17:54] LABS: APPEARANCE, URINE HAZY (CLEAR); BACTERIA, URINE AUTO NEGATIVE (NEGATIVE); BILIRUBIN, URINE AUTO NEGATIVE (NEGATIVE); BLOOD, URINE BLOOD NEGATIVE (NEGATIVE); COLOR, URINE YELLOW (YELLOW); GLUCOSE, URINE (UA) AUTO NEGATIVE (NEGATIVE); KETONE, URINE AUTO NEGATIVE (NEGATIVE); LEUKOCYTE ESTERASE, URINE AUTO NEGATIVE (NEGATIVE); NITRITE, URINE AUTO NEGATIVE (NEGATIVE); PROTEIN, URINE AUTO 1+ mg/dL (NEGATIVE); RBC, URINE AUTO 1 /HPF (0-3); SQUAMOUS EPITHELIAL CELL UR AU 3 /HPF (0-6); WBC, URINE AUTO 1 /HPF (0-3)
== END ==
LOC: M LAB REF 17:01
PROVIDERS: ATTEND Student in an Organized Health Care Education/Training Program
DX: R30.0 Dysuria (principal)

== ENCOUNTER → 2023-10-02 | Outpatient (REF) | payer OTHER | LOC: M SFHCLERA 16:52 | PROVIDERS: ATTEND Physician Assistant | DX: J22 Unspecified acute lower respiratory infection (principal) ==

== ENCOUNTER → 2023-12-04 | Outpatient (CLI) | payer OTHER | LOC: M WHC 08:19 | PROVIDERS: ATTEND Specialist | DX: Z12.31 Encounter for screening mammogram for malignant neoplasm of breast (principal) ==

== ENCOUNTER → 2023-12-04 | Outpatient (REF) | payer OTHER | LOC: M SFHCWAGY 10:11 | PROVIDERS: ATTEND Specialist | DX: R87.810 Cervical high risk human papillomavirus (HPV) DNA test positive (principal); R87.612 Low grade squamous intraepithelial lesion on cytologic smear of cervix (LGSIL) ==

== ENCOUNTER → 2024-03-03 | Outpatient (REF) | payer OTHER ==
[2024-03-03 17:45] LABS: RSV AMPLIFICATION NEGATIVE (NEGATIVE)
== END ==
LOC: M SFHCLERA 16:30
PROVIDERS: ATTEND Physician Assistant
DX: J22 Unspecified acute lower respiratory infection (principal)

== ENCOUNTER → 2024-08-11 | Outpatient (CLI) | payer OTHER | LOC: M RAD 10:35 | PROVIDERS: ATTEND Physician Assistant | DX: F17.210 Nicotine dependence, cigarettes, uncomplicated (principal) ==

== ENCOUNTER 2024-10-01 17:24 | Emergency (ER) | payer OTHER ==
[~2024-10-01] VITALS: Ht 172.7 cm; Wt 80.0 kg
[~2024-10-01 17:24] MED LIST changes: -CYCL5TAB PO; +CYCL5TAB4 PO
[2024-10-01] MEDS: ACETAMINOPHEN 500 MG TAB PO ONE (19:41)
[2024-10-01] MEDS: oxyCODONE 5MG TAB PO ONE (20:50)
[2024-10-01 21:54] VITALS: BP 118/58; TEMP 99.2; O2SAT 98
[2024-10-01] MEDS ORDERED: HYDR-3713 PO (22:28)
[2024-10-01] MEDS: NORCO 5/325MG TABLET (HOME DOSE PACK) PO ONE (22:30)
== END 2024-10-01 22:43 | disposition home or self-care (01) ==
LOC: EDBD 17:24 → M ED 17:24
DX: S42.332A Displaced oblique fracture of shaft of humerus, left arm, initial encounter for closed fracture (principal); Y92.410 Unspecified street and highway as the place of occurrence of the external cause; Y93.9 Activity, unspecified; Y99.9 Unspecified external cause status; V47.6XXA Car passenger injured in collision with fixed or stationary object in traffic accident, initial encounter; J45.909 Unspecified asthma, uncomplicated; Z88.8 Allergy status to other drugs, medicaments and biological substances; Z79.1 Long term (current) use of non-steroidal anti-inflammatories (NSAID)

== ENCOUNTER → 2024-10-06 | Outpatient (CLI) | payer OTHER ==
[~2024-10-06] MED LIST changes: +HYDR-3713 PO
== END ==
LOC: M SOG 07:33
PROVIDERS: ATTEND Orthopaedic Surgery
DX: M79.622 Pain in left upper arm (principal)

== ENCOUNTER → 2024-10-14 | Outpatient (CLI) | payer OTHER | LOC: M SOG 07:56 | PROVIDERS: ATTEND Orthopaedic Surgery | DX: S42.332A Displaced oblique fracture of shaft of humerus, left arm, initial encounter for closed fracture (principal); M79.622 Pain in left upper arm ==

== ENCOUNTER → 2024-10-16 | Outpatient (CLI) | payer OTHER | LOC: M SOG 07:49 | PROVIDERS: ATTEND Orthopaedic Surgery | DX: S42.332A Displaced oblique fracture of shaft of humerus, left arm, initial encounter for closed fracture (principal); M79.622 Pain in left upper arm ==

== ENCOUNTER → 2024-10-23 | Outpatient (CLI) | payer OTHER | LOC: M SOG 07:57 | PROVIDERS: ATTEND Orthopaedic Surgery | DX: Z53.9 Procedure and treatment not carried out, unspecified reason (principal) ==

== ENCOUNTER → 2024-10-29 | Outpatient (CLI) | payer OTHER | LOC: M SOG 07:58 | PROVIDERS: ATTEND Orthopaedic Surgery | DX: S42.332D Displaced oblique fracture of shaft of humerus, left arm, subsequent encounter for fracture with routine healing (principal) ==

== ENCOUNTER → 2024-11-12 | Outpatient (CLI) | payer OTHER | LOC: M SOG 07:57 | PROVIDERS: ATTEND Orthopaedic Surgery | DX: Z53.9 Procedure and treatment not carried out, unspecified reason (principal) ==

== ENCOUNTER → 2024-11-16 | Outpatient (CLI) | payer OTHER | LOC: M SOG 13:45 | PROVIDERS: ATTEND Orthopaedic Surgery | DX: S42.332A Displaced oblique fracture of shaft of humerus, left arm, initial encounter for closed fracture (principal); W18.30XA Fall on same level, unspecified, initial encounter; Y92.009 Unspecified place in unspecified non-institutional (private) residence as the place of occurrence of the external cause ==

== ENCOUNTER → 2024-12-03 | Outpatient (CLI) | payer OTHER | LOC: M SOG 09:51 | PROVIDERS: ATTEND Orthopaedic Surgery | DX: S42.332D Displaced oblique fracture of shaft of humerus, left arm, subsequent encounter for fracture with routine healing (principal) ==

== ENCOUNTER → 2024-12-31 | Outpatient (CLI) | payer OTHER | LOC: M SOG 07:46 | PROVIDERS: ATTEND Orthopaedic Surgery | DX: S42.33 Oblique fracture of shaft of humerus (principal) ==

== ENCOUNTER → 2025-01-14 | Outpatient (REF) | payer OTHER ==
[2025-01-16 16:03] LABS: HPV APTIMA Not Detected (Not Detected)
== END ==
LOC: M SFHCWAGY 15:02
PROVIDERS: ATTEND Specialist
DX: Z01.419 Encounter for gynecological examination (general) (routine) without abnormal findings (principal); R30.0 Dysuria

== ENCOUNTER → 2025-02-16 | Outpatient (CLI) | payer OTHER | LOC: M SOG 07:12 | PROVIDERS: ATTEND Orthopaedic Surgery | DX: S42.332D Displaced oblique fracture of shaft of humerus, left arm, subsequent encounter for fracture with routine healing (principal) ==

== ENCOUNTER → 2025-02-23 | Outpatient (REF) | payer OTHER | LOC: M SFHCLERA 14:26 | PROVIDERS: ATTEND Internal Medicine | DX: J06.9 Acute upper respiratory infection, unspecified (principal) ==

== ENCOUNTER → 2025-05-19 | Outpatient (CLI) | payer OTHER | LOC: M SOG 06:56 | PROVIDERS: ATTEND Orthopaedic Surgery | DX: S42.332D Displaced oblique fracture of shaft of humerus, left arm, subsequent encounter for fracture with routine healing (principal) ==